=== PATIENT | male | born 1950 | race Two or more races ===

== ENCOUNTER 2022-04-10 20:49 | Inpatient (IN) | payer MEDICARE, OTHER ==
[~2022-04-10] VITALS: Ht 175.3 cm; Wt 71.2 kg
[2022-04-10] MEDS ORDERED: ASPI-1420 PO (23:19)
[2022-04-10] MEDS ORDERED: CARV25TA2 PO (23:19)
[2022-04-10] MEDS ORDERED: CHOL100062 PO (23:22)
[2022-04-10] MEDS ORDERED: CYAN-51 PO (23:24)
[2022-04-10] MEDS ORDERED: POLY17PO4 PO (23:25)
[2022-04-10] MEDS ORDERED: QUET25TA PO ×2 (23:26→23:27)
[2022-04-10] MEDS ORDERED: SIMV10TA2 PO (23:28)
[2022-04-10] MEDS ORDERED: ACETAMINOPHEN 325 MG TABLET PO PRN (23:30)
[2022-04-10] MEDS ORDERED: MAGNESIUM HYDROXIDE 30 ML UDC PO PRN (23:30)
[2022-04-10] MEDS ORDERED: BLOOD SUGAR DIAGNOSTIC 1 EACH STRIP IN ONE (23:30)
[2022-04-10] MEDS ORDERED: MAG HYDROX/AL HYDROX/SIMETH 30 ML UDC PO PRN (23:30)
[2022-04-10 23:31] VITALS: BP 138/80
--- NOTE | 2022-04-10 23:35 | NUR ---
GPS RN NOTE, PATIENT NEEDS A MEDICATION RECONCILIATION. PAGED [facility] WAITING FOR A RETURN CALL FROM DR JASMINE. WILL CONTINUE TO MONITOR THIS PATIENT WITH THE HELP OF STAFF.
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
[2022-04-11] MEDS: clonazePAM 0.5 MG TABLET PO PRN ×2 (05:28→09:45)
--- NOTE | 2022-04-11 05:28 | NUR ---
RN NOTES: ANXIETY PT. NOTED VERY ANXIOUS PACING IN THE HALLWAY SCREAMING ,YELLING ,PARNOID, NONREDIRECTABLE,KLONOPIN 0.5 MG PO GIVEN WILL CONTINUE TO MONITOR.
[2022-04-11 07:56] LABS: BASOPHILS % (AUTO) 0.8 % (0.0-2.0); EOSINOPHILS % (AUTO) 2.7 % (0.0-6.0); HEMATOCRIT 38 % (39-51); HEMOGLOBIN 12.5 g/dL (13.5-17.5); LYMPHOCYTES # (AUTO) 1.7 K/uL (0.8-4.8); MEAN CORPUSCULAR HGB CONC 33 g/dl (31.0-36.0); MEAN CORPUSCULAR VOLUME 89 fL (80-96); MONOCYTES # (AUTO) 0.6 K/uL (0.1-1.30); MONOCYTES % (AUTO) 11.4 % (2.0-12.0); NEUTROPHILS # (AUTO) 3.1 K/uL (1.8-8.9); NEUTROPHILS % (AUTO) 55.1 % (43.0-81.0); PLATELET COUNT (AUTO) 290 K/uL (150-450); WHITE BLOOD COUNT (AUTO) 5.7 K/uL (4.3-11.0)
[2022-04-11 08:00] VITALS: BP 132/71
[2022-04-11 08:43] LABS: CALCIUM, SERUM 8.9 mg/dL (8.5-10.1); CARBON DIOXIDE 28 mmol/L (21-32); CHLORIDE 108 mmol/L (98-107); CREATININE 1.6 mg/dL (0.6-1.3); GLUCOSE 62 mg/dL (74-106); POTASSIUM 3.3 mmol/L (3.5-5.1); SODIUM SERUM 144 mmol/L (136-145); UREA NITROGEN, BLOOD 33 mg/dL (7-18)
[2022-04-11 08:55] LABS: CHOLESTEROL 162 mg/dL (<200); HDL CHOLESTEROL 65 mg/dL (40-60); LDL 90 mg/dL (0-99); TRIGLYCERIDES 36 mg/dL (30-150)
[2022-04-11] MEDS: Z GUARD REMEDY 4 OZ OINT TP SCH (09:45)
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
--- NOTE | 2022-04-11 10:52 | NUR ---
BLACK Initial Discharge Note: Patient currently resides at [facility] located at [address] [place] [address]; ([phone]). Pt does not have any supportive contact at this time. BLACK contacted Marie from admissions ([phone]) who stated that pt is welcomed back. BLACK will work with the MD, family, and treatment team.
[2022-04-11] MEDS ORDERED: POTASSIUM CHLORIDE 20 MEQ TAB.PRT.SR PO SCH ×2 (11:00→13:00)
--- NOTE | 2022-04-11 11:01 | NUR ---
Treatment Plan: Pt refused to sign treatment plan and appeared very confused.
[2022-04-11] MEDS: CARVEDILOL 12.5 MG TABLET PO SCH ×2 (12:45→17:25)
[2022-04-11] MEDS: ASPIRIN EC 81 MG TABLET.DR PO SCH (12:46)
[2022-04-11 16:00] VITALS: BP 136/74
[2022-04-11] MEDS: DIVALPROEX SODIUM 125 MG CAP.SPRINK PO SCH ×2 (16:01→21:35)
--- NOTE | 2022-04-11 19:30 | NUR ---
GPS RN NOTE, RECEIVED PATIENT AWAKE AND IN BED, NO S/S OR COMPLAINTS OF PAIN AT THIS TIME. PATIENT IS DISPLAYING NO S/S OF APPARENT DISTRESS AT THIS TIME. PATIENT BREATHING IS UNLABORED WITH EQUAL RISE AND FALL OF THE CHEST. PATIENT IS ALERT AND ORIENTED X 1 ON ROOM AIR WITH A SPO2 98%. PATIENT IS MONTSERRATIAN SPEAKING WITH SOME ROMANIAN. PATIENT IS COMPLIANT WITH MEDICATIONS, CONFUSED, ANXIOUS, PARANOID, UNPREDICTABLE, AND UNCOOPERATIVE. PATIENT DENIES SUICIDAL AND HOMICIDAL IDEATIONS AT THIS TIME. PATIENT ASSISTED WITH TURNING AND REPOSITIONING Q2HR AND PRN FOR COMFORT AND CIRCULATION. PATIENT HAS NO NEEDS AT THIS TIME. PATIENT EDUCATED ON THE USE OF THE CALL CRUZ. PATIENT BED SIDE RAILS UP X 2 FOR SAFETY. PATIENT BED IS LOCKED AND LOW. WILL CONTINUE TO MONITOR THIS PATIENT Q15 MINUTES WITH THE HELP OF STAFF TO MAINTAIN SAFETY.
[2022-04-11 20:25] VITALS: BP 135/76
[2022-04-11] MEDS: OLANZAPINE ZYDIS 5 MG TAB.RAPDIS PO SCH (21:35)
[2022-04-11] MEDS: SIMVASTATIN 10 MG TABLET PO SCH (21:35)
[2022-04-11] MEDS: TEMAZEPAM 7.5 MG CAPSULE PO PRN (21:37)
--- NOTE | 2022-04-11 21:37 | NUR ---
GPS RN NOTE, PATIENT HAS A COMPLAINT OF NOT BEING ABLE TO SLEEP AND IS REQUESTING RESTORIL AT THIS TIME. PATIENT VITAL SIGNS ARE STABLE. GAVE RESTORIL 7.5MG PO HS PRN ORDERED. WILL REASSESS FOR INSOMNIA AND I WILL CONTINUE TO MONITOR THIS PATIENT WITH THE HELP OF STAFF.
[2022-04-12] MEDS: clonazePAM 0.5 MG TABLET PO PRN ×2 (00:12→04:20)
--- NOTE | 2022-04-12 00:12 | NUR ---
GPS RN NOTE, PATIENT HAS A COMPLAINT OF FEELING ANXIOUS AND IS REQUESTING KLONOPIN AT THIS TIME. PATIENT VITAL SIGNS ARE STABLE. GAVE KLONOPIN 0.5MG PO Q4HR PRN ORDERED. WILL REASSESS FOR ANXIETY AND I WILL CONTINUE TO MONITOR THIS PATIENT WITH THE HELP OF STAFF.
[2022-04-12 08:00] VITALS: BP 116/73
[2022-04-12] MEDS: Z GUARD REMEDY 4 OZ OINT TP SCH (08:45)
[2022-04-12] MEDS: OLANZAPINE ZYDIS 5 MG TAB.RAPDIS PO SCH ×2 (08:45→21:45)
[2022-04-12] MEDS: DIVALPROEX SODIUM 125 MG CAP.SPRINK PO SCH ×2 (08:45→21:44)
[2022-04-12] MEDS: CYANOCOBALAMIN 500 MCG TABLET PO SCH (08:45)
[2022-04-12] MEDS: ASPIRIN EC 81 MG TABLET.DR PO SCH (08:45)
[2022-04-12] MEDS: POLYETHYLENE GLYCOL 3350 17 GM POWD.PACK PO SCH (08:46)
[2022-04-12] MEDS: CARVEDILOL 12.5 MG TABLET PO SCH ×2 (08:46→17:26)
--- NOTE | 2022-04-12 14:01 | NUR ---
GPS/RN PT REFUSED IN AND OUT INSERTION , REFUSED TO GO THE RESTROOM. REQUESTED TO BE LEFT ALONE. COMMUNICATED VIA LUCINA DAVIS. CHARGE NURSE DAT RAY.
--- NOTE | 2022-04-12 15:40 | NUR ---
GPS/RN STRAIGHT CATH. DONE WITH 1000ML OUTPUT. URINE SAMPLES COLLECTED AND SENT TO THE LAB.
[2022-04-12 17:54] VITALS: BP 133/83
[2022-04-12 18:31] LABS: BILIRUBIN,URINE NEGATIVE (NEGATIVE); COLOR,URINE YELLOW (YELLOW); LEUKOCYTE ESTERASE ,URINE NEGATIVE (NEGATIVE); NITRITE, URINE NEGATIVE (NEGATIVE); PH,URINE 5.5 (5.0-8.0); PROTEIN,URINE NEGATIVE (NEGATIVE); UGLUCOSE NEGATIVE (NEGATIVE); UROBILINOGEN,URINE 0.2 EU/dL (0.2)
[2022-04-12 18:49] LABS: CREATININE, URINE 72.4 MG/DL (30.0-125.0)
[2022-04-12 20:00] VITALS: BP 149/84
--- NOTE | 2022-04-12 20:07 | NUR ---
GPS TEST PREPARER NOTE : PT RECEIVED SITTING IN NEREYDA- CHAIR IN THE HALLWAY, APPEARS RESTING COMFORTABLY AT THIS TIME, BREATHING EVEN AND UNLABORED, WITH NO S/SX OF RESP DISTRESS NOTED. ALERT ORIENTED X 1, DENIES PAIN OR DISCOMFORT AT THIS TIME. PT IS IRISH SPEAKING WITH LITTLE SOUTH SUDANESE. PATIENT IS COMPLIANT WITH MEDICATIONS, CONFUSED, ANXIOUS, PARANOID, UNPREDICTABLE, AND UNCOOPERATIVE. PATIENT DENIES SUICIDAL AND HOMICIDAL IDEATIONS AT THIS TIME. PATIENT ASSISTED WITH TURNING AND REPOSITIONING Q2HR AND PRN FOR COMFORT AND CIRCULATION. PATIENT HAS NO NEEDS AT THIS TIME. SAFETY AND COMFORT MEASURES OBSERVED. WILL CONTINUE TO MONITOR THIS PATIENT Q15 MINUTES WITH THE HELP OF STAFF TO MAINTAIN SAFETY.
[2022-04-12] MEDS: SIMVASTATIN 10 MG TABLET PO SCH (21:44)
--- NOTE | 2022-04-12 22:40 | NUR ---
Bladder scan done as per order- scan obtained >990 ml , pt was taken to the restroom but unable to void, diaper also noted clean and dry, software publisher Nurse Mauricio novoa , will contact occupational therapy technician for further order. Pt denies pain or discomfort at this time. Will cont to monitor.
[2022-04-12] MEDS: TEMAZEPAM 7.5 MG CAPSULE PO PRN (22:54)
--- NOTE | 2022-04-12 22:54 | NUR ---
PT REQUESTED FOR PRN RESTORIL - FOR INSOMNIA, MEDICATION GIVEN ORDERED, WILL CONT TO MONITOR AND ASSESS EFFECTIVENESS IN AN HOUR, SAFETY PRECAUTIONS OBSERVED.
--- NOTE | 2022-04-12 23:00 | NUR ---
GPS RN NOTE, PATIENT RETAINING URIN, BLADDER SCANNER COMPLETED WITH 999ML OF URIN RETAINED. PAGED [facility] AND INFORMED CHENTE RHODES NP OF MY FINDINGS. CHENTE RHODES NP ORDERED TO INSERT WALLS CATHETER, AND ORDERED FLOMAX 0.4MG PO Q HS FIRST DOSE 2330. ALL ORDERS NOTED CARRIED OUT. WILL CONTINUE TO MONITOR THIS PATIENT WITH THE HELP OF STAFF.
--- NOTE | 2022-04-12 23:13 | NUR ---
GPS AUTO PARTS PROFESSIONAL NOTE : CORSETIER NURSE ELLEN RECEIVED ORDER FROM ALEXANDRE RHODES TO INSERT WALLS CATHETER TO PT FOR URINARY RETENTION , ORDER CARRIED OUT- INSERTED 16 FR / 10 ML BAL INDWELLING CATHETER TO PT- TOLERATED WELL BY PT- CLEAR YELLOW URINE DRAINING WELL, WITH NO S/SX OF BLEEDING NOTED, NO SIGNS OF DIFFICULTY NOTED DURING INSERTION- STERILE TECHNIQUE OBSERVED DURING PROCEDURE, PT COOPERATIVE DURING PROCEDURE. URINE OUTPUT OF 400 ML NOTED RIGHT AFTER INSERTION, CLAMPED WALLS, AND WILL UN CLAMP AFTER 30 MINS- WILL RE-ASSESS AND CONT TO MONITOR PT.
--- NOTE | 2022-04-12 23:15 | NUR ---
GPS RN NOTE, PATIENT HAS A WALLS CATHETER AND NEEDS A SITTER PER GPS POLICY. INFORMED CLOTH BOLT BANDER DHARMESH CORBETT RN AND PAGED DR LEON. INFORMED DR LEON OF MY FINDINGS. DR DEGROOT GAVE ORDER FOR ONE TO ONE SITTER WHILE WALLS CATHETER INSERTED TO START 04/13/22 @ 0730. ALL ORDERS NOTED AND CARRIED OUT. WILL CONTINUE TO MONITOR THIS PATIENT WITH THE HELP OF STAFF. Addendum: 04/12/22 at 2335 by ELLEN ANN RN GPS RN NOTE, PATIENT HAS A WALLS CATHETER AND NEEDS A SITTER PER GPS POLICY. INFORMED CLOTH BOLT BANDER DHARMESH CORBETT RN AND PAGED DR LEON. INFORMED DR LEON OF MY FINDINGS. DR LEON GAVE ORDER FOR ONE TO ONE SITTER WHILE WALLS CATHETER IS INSERTED AND TO START IT ON 04/13/22 @ 0730. ALL ORDERS NOTED AND CARRIED OUT. WILL CONTINUE TO MONITOR THIS PATIENT WITH THE HELP OF STAFF.
[2022-04-12] MEDS: TAMSULOSIN 0.4 MG CAP.SR.24H PO SCH (23:38)
--- NOTE | 2022-04-12 23:41 | NUR ---
GPS AIRCRAFT POWER PLANT ASSEMBLER NOTE- NEW MEDICATION ORDER FLOMAX 0.4 CAP FOR BLADDER CONTROL GIVEN TO PT ORDERED, MEDICATION GIVEN WITH APPLE SAUCE. PT COMPLIANT WITH HIS MEDICATION AND COOPERATIVE. CONT TO MONITOR PT FOR SAFETY AND BEHAVIOR.
--- NOTE | 2022-04-12 23:59 | NUR ---
GPS DECORATIVE ENGRAVER NOTE : RE-ASSESSMENT OF RESTORIL- PT STILL AWAKE, BUT APPEARS SLEEPY, CALM AND COOPERATIVE AT THIS TIME. DENIES PAIN OR DISCOMFORT. REPOSITIONED AND KEPT CLEAN AND COMFORTABLE. UN-CLAMPED WALLS CATH, NOW ON CONT - WALLS CATHETER, WALLS DRAINING CLEAR YELLOW URINE , NO SEDIMENTS NO BLOOD NOTED. CONT TO MONITOR AND ANTICIPATE NEEDS.
--- NOTE | 2022-04-13 01:00 | NUR ---
GPS COAT JOINER LOCKSTITCH NOTE: PT AWAKE, C/O HUNGRY, SNACK - SANDWICH GIVEN AND APPLE JUICE GIVEN TO PT, PT APPRECIATIVE. REMAINS CALM AT THIS TIME. CONT TO MONITOR AND ANTICIPATE NEEDS.
[2022-04-13] MEDS: clonazePAM 0.5 MG TABLET PO PRN ×4 (01:20→19:53)
--- NOTE | 2022-04-13 01:21 | NUR ---
GPS EXPELLER OPERATOR NOTE: PT WITH EPISODE ON ANXIETY , PRN KLONOPIN 0.5 MG / TAB GIVEN ORDERED. WILL CONT TO CLOSELY MONITOR PT.
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
--- NOTE | 2022-04-13 03:19 | NUR ---
GPS CHIEF STATION ENGINEER NOTE : PT REMAINS WIDE AWAKE, TRASHING ,ANXIOUS AND ATTEMPTING TO PULL OUT WALLS, BILATERAL HAND MITTENS PER ORDER, CIRCULATION CHECK Q 15 MINS, STAFF CLOSELY MONITORING PT.
--- NOTE | 2022-04-13 05:21 | NUR ---
GPS INDUSTRIAL RELATIONS COUNSELOR NOTE : PT WAS AWAKE MOST OF THE NIGHT, ANXIOUS, UNPREDICTABLE, PARANOID, EASILY AGITATED, DISORGANIZED, NEEDS FREQUENT REDIRECTIONS, AND NEEDS 1:1 MONITORING FOR SAFETY - PT HAS WALLS CATHETER FOR URINARY INCONTINENCE. COMPLIANT WITH MEDICATIONS , TOLERATED MEDS NO A/R NOTED. URINE OUTPUT OBTAINED : 1,750 ML OF CLEAR YELLOW URINE, NO SEDIMENTS NO BLOOD NOTED. REPOSITIONED PT Q 2HRS, AND KEPT PT CLEAN AND DRY. Q 15 MIN CHECK DONE, AND Q 15 MIN CIRCULATION CHECK AND RELEASE OF SOFT BILATERAL HAND MITTENS PER ORDER. WILL CONT TO MONITOR AND ANTICIPATE NEEDS. SAFETY MEASURES OBSERVED.
[2022-04-13 07:09] LABS: BASOPHILS % (AUTO) 0.8 % (0.0-2.0); EOSINOPHILS % (AUTO) 5.1 % (0.0-6.0); HEMATOCRIT 39 % (39-51); HEMOGLOBIN 12.6 g/dL (13.5-17.5); LYMPHOCYTES # (AUTO) 1.6 K/uL (0.8-4.8); LYMPHOCYTES % (AUTO) 31.1 % (20.0-44.0); MEAN CORPUSCULAR HGB CONC 32 g/dl (31.0-36.0); MEAN CORPUSCULAR VOLUME 90 fL (80-96); MONOCYTES # (AUTO) 0.5 K/uL (0.1-1.30); NEUTROPHILS # (AUTO) 2.7 K/uL (1.8-8.9); PLATELET COUNT (AUTO) 283 K/uL (150-450); RED BLOOD CELL COUNT(AUTO) 4.36 MIL/uL (4.5-6.0)
[2022-04-13 07:28] LABS: ALBUMIN 3.1 g/dL (3.4-5.0); BILIRUBIN,TOTAL 0.4 mg/dL (0.2-1.0); CALCIUM, SERUM 9.2 mg/dL (8.5-10.1); CREATININE 1.3 mg/dL (0.6-1.3); POTASSIUM 4.2 mmol/L (3.5-5.1); TOTAL PROTEIN, SERUM 6.8 g/dL (6.4-8.2)
[2022-04-13 08:00] VITALS: BP 143/97
[2022-04-13] MEDS: OLANZAPINE 2.5 MG TABLET PO SCH (08:05)
[2022-04-13] MEDS: CYANOCOBALAMIN 500 MCG TABLET PO SCH (08:05)
[2022-04-13] MEDS: CARVEDILOL 12.5 MG TABLET PO SCH ×2 (08:05→17:00)
[2022-04-13] MEDS: DIVALPROEX SODIUM 125 MG CAP.SPRINK PO SCH ×2 (08:05→21:52)
[2022-04-13] MEDS: Z GUARD REMEDY 4 OZ OINT TP SCH (08:06)
[2022-04-13] MEDS: ASPIRIN EC 81 MG TABLET.DR PO SCH (08:06)
[2022-04-13] MEDS: POLYETHYLENE GLYCOL 3350 17 GM POWD.PACK PO SCH (08:06)
--- NOTE | 2022-04-13 11:05 | NUR ---
NURSE NOTE: PT AGITATED AT THIS TIME. TRYING TO TAKE WALLS OUT. CLONAZEPAM ADMINISTERED ORDERED. PT ADIS WELL. WILL CONT TO MONITOR.
--- NOTE | 2022-04-13 12:05 | NUR ---
NURSE NOTE: PT A LITTLE CALMER THAN BEFORE CLONOPIN, BUT STILL A LITTLE AGITATED. NOT PICKING AT WALLS CATH ANYMORE. WILL CONT TO MONITOR.
[2022-04-13] MEDS: OLANZAPINE ZYDIS 5 MG TAB.RAPDIS PO SCH ×2 (13:01→21:52)
--- NOTE | 2022-04-13 15:25 | NUR ---
NURSE NOTE: PT AGITATED. TRYING TO TAKE WALLS OUT. CLONAZEPAM PO ADMIN ORDERED, PT ADIS WELL.
[2022-04-13 16:00] VITALS: BP 108/70
--- NOTE | 2022-04-13 16:25 | NUR ---
NURSE NOTE: PT CALMER AT THIS TIME. NOT PICKING AT WALLS ANYMORE. WILL CONT TO MONITOR.
--- NOTE | 2022-04-13 20:04 | NUR ---
Pt agitated and trying to pull on kendrick cath. Least restrictive measures ineffective. Klonopin 0.5 mg po prn given as ordered. 1:1 sitter by bed side at all times. Will continue to monitor.
--- NOTE | 2022-04-13 21:15 | NUR ---
Post 1 hr Klonopin effective. Pt calm and asleep in bed easy to arouse. 1:1 sitter by bedside at all times for safety. Rivero patent and intact with yellow urine and draining well. No s/s of any kind of distress. Frequent visual check done for safety. Will continue to monitor.
[2022-04-13] MEDS: SIMVASTATIN 10 MG TABLET PO SCH (21:52)
[2022-04-13] MEDS: TAMSULOSIN 0.4 MG CAP.SR.24H PO SCH (21:53)
[2022-04-14 08:00] VITALS: BP 136/78
[2022-04-14] MEDS: OLANZAPINE 2.5 MG TABLET PO SCH (09:35)
[2022-04-14] MEDS: ASPIRIN EC 81 MG TABLET.DR PO SCH (09:35)
[2022-04-14] MEDS: CARVEDILOL 12.5 MG TABLET PO SCH ×2 (09:36→17:30)
[2022-04-14] MEDS: CYANOCOBALAMIN 500 MCG TABLET PO SCH (09:36)
[2022-04-14] MEDS: POLYETHYLENE GLYCOL 3350 17 GM POWD.PACK PO SCH (09:37)
[2022-04-14] MEDS: DIVALPROEX SODIUM 125 MG CAP.SPRINK PO SCH ×2 (09:37→21:09)
[2022-04-14] MEDS: Z GUARD REMEDY 4 OZ OINT TP SCH (09:37)
[2022-04-14] MEDS: OLANZAPINE ZYDIS 5 MG TAB.RAPDIS PO SCH ×2 (13:25→21:10)
--- NOTE | 2022-04-14 13:55 | NUR ---
BLACK Family: SW received a call from antoninabrianna Cary ([phone]) and discussed treatment and discharge plan. [facility] She stated that he was living with them and they were trying to take care of pt but were unable too. She stated that she is unsure if she would want pt to go back to [place] or with family or a new facility. BLACK will follow up with family when pt is a bit stable.
[2022-04-14 16:00] VITALS: BP 141/73
[2022-04-14 19:40] VITALS: BP 114/60
[2022-04-14] MEDS: TAMSULOSIN 0.4 MG CAP.SR.24H PO SCH (21:09)
[2022-04-14] MEDS: SIMVASTATIN 10 MG TABLET PO SCH (21:10)
[2022-04-14] MEDS: TEMAZEPAM 7.5 MG CAPSULE PO PRN (23:34)
[2022-04-15] MEDS: TEMAZEPAM 7.5 MG CAPSULE PO PRN ×2 (00:46→23:21)
[2022-04-15 08:00] VITALS: BP 145/84
--- NOTE | 2022-04-15 08:00 | NUR ---
VIPIN PSYCHE RN NOTES: RECEIVED PT IN UP IN CHAIR, A/O X 1 MONGOLIAN SPEAKING. NO SOB OR CARDIAC DISTRESS NOTED, DENIES PAIN AT THIS TIME, NO EPISODES OF BEHAVIORAL CHANGES. RESIDENT NOTED WITH WALLS CATHETER DRAINING CLEAR YELLOW COLORED URINE VIA GRAVITY. PT'S MORNING MEDS CRUSHED AND MIXED WITH VANILLA PUDDING, POWDERED MEDS (MIRALAX) MIXED WITH ORANGE JUICE AND PT TOLERATED WELL. WILL MONITOR ACCORDINGLY. SAFETY MEASURES MAINTAINED:BED LOCKED AND IN LOWEST POSITION, SIDE RAILS UP X 2. CALL LIGHT IN EASY REACH.
--- NOTE | 2022-04-15 08:30 | NUR ---
RN NOTES ADDENDUM: PT NOTED WITH BILATERAL MITTENS PT PULLING OUT HIS WALLS CATH, PER MIXER OPERATOR HOT METAL ENDORSEMENT.
[2022-04-15] MEDS: DIVALPROEX SODIUM 125 MG CAP.SPRINK PO SCH ×2 (08:36→21:15)
[2022-04-15] MEDS: CARVEDILOL 12.5 MG TABLET PO SCH ×2 (08:36→16:31)
[2022-04-15] MEDS: POLYETHYLENE GLYCOL 3350 17 GM POWD.PACK PO SCH (08:36)
[2022-04-15] MEDS: ASPIRIN EC 81 MG TABLET.DR PO SCH (08:37)
[2022-04-15] MEDS: CYANOCOBALAMIN 500 MCG TABLET PO SCH (08:37)
[2022-04-15] MEDS: OLANZAPINE 2.5 MG TABLET PO SCH (08:39)
[2022-04-15] MEDS: Z GUARD REMEDY 4 OZ OINT TP SCH (09:00)
[2022-04-15] MEDS: OLANZAPINE ZYDIS 5 MG TAB.RAPDIS PO SCH ×2 (12:38→21:15)
[2022-04-15 16:00] VITALS: BP 116/62
[2022-04-15 20:10] VITALS: BP 110/71
[2022-04-15] MEDS: TAMSULOSIN 0.4 MG CAP.SR.24H PO SCH (21:15)
[2022-04-15] MEDS: SIMVASTATIN 10 MG TABLET PO SCH (21:15)
[2022-04-16] MEDS: TEMAZEPAM 7.5 MG CAPSULE PO PRN (00:34)
--- NOTE | 2022-04-16 05:59 | NUR ---
RN note: Patient was given Restoril 7. 5 mg PO and noted still awake with difficulty falling asleep.Repeat dose of Restoril 7.5mg PO as ordered.Patient slept for 1 hour.
[2022-04-16 08:00] VITALS: BP 149/70
[2022-04-16] MEDS: ASPIRIN EC 81 MG TABLET.DR PO SCH (08:57)
[2022-04-16] MEDS: DIVALPROEX SODIUM 125 MG CAP.SPRINK PO SCH ×2 (08:57→21:28)
[2022-04-16] MEDS: CYANOCOBALAMIN 500 MCG TABLET PO SCH (08:58)
[2022-04-16] MEDS: CARVEDILOL 12.5 MG TABLET PO SCH ×2 (08:58→16:59)
[2022-04-16] MEDS: OLANZAPINE 2.5 MG TABLET PO SCH (08:58)
[2022-04-16] MEDS: Z GUARD REMEDY 4 OZ OINT TP SCH (08:58)
[2022-04-16] MEDS: POLYETHYLENE GLYCOL 3350 17 GM POWD.PACK PO SCH (09:00)
--- NOTE | 2022-04-16 09:48 | NUR ---
Court Notification: SW contacted pt's marky Townsend ([phone]) to notify of pt's 14 day hold. Left a voicemail.
--- NOTE | 2022-04-16 09:49 | NUR ---
Court Hearing: Patient's court hearing for 4360 was today and it was upheld for GD.
[2022-04-16] MEDS: OLANZAPINE ZYDIS 5 MG TAB.RAPDIS PO SCH ×2 (12:41→21:27)
[2022-04-16] MEDS: clonazePAM 0.5 MG TABLET PO PRN (12:45)
--- NOTE | 2022-04-16 12:45 | NUR ---
NURSE NOTE: PT AGITATED AT THIS TIME. ATIVAN PO ADMINISTERED ORDERED. PT ADIS WELL. WILL CONT TO MONITOR.
--- NOTE | 2022-04-16 13:45 | NUR ---
NURSE NOTE: PT CALM AT THIS TIME. ATIVAN EFFECTIVE. WILL CONT TO MONITOR.
--- NOTE | 2022-04-16 15:11 | NUR ---
SNF Referral: BLACK sent clinicals to [facility] ([phone]) for placement. BLACK sent to Max Streeter. SW sent H & P, progress notes, and medication list.
[2022-04-16 16:00] VITALS: BP 139/80
[2022-04-16 20:09] VITALS: BP 104/54
[2022-04-16] MEDS: SIMVASTATIN 10 MG TABLET PO SCH (21:26)
[2022-04-16] MEDS: TAMSULOSIN 0.4 MG CAP.SR.24H PO SCH (22:00)
[2022-04-17 08:00] VITALS: BP 152/86
[2022-04-17] MEDS: OLANZAPINE 2.5 MG TABLET PO SCH (08:31)
[2022-04-17] MEDS: ASPIRIN EC 81 MG TABLET.DR PO SCH (08:31)
[2022-04-17] MEDS: DIVALPROEX SODIUM 125 MG CAP.SPRINK PO SCH ×2 (08:31→21:47)
[2022-04-17] MEDS: POLYETHYLENE GLYCOL 3350 17 GM POWD.PACK PO SCH (08:34)
[2022-04-17] MEDS: CYANOCOBALAMIN 500 MCG TABLET PO SCH (08:34)
[2022-04-17] MEDS: CARVEDILOL 12.5 MG TABLET PO SCH ×2 (08:35→17:00)
[2022-04-17] MEDS: Z GUARD REMEDY 4 OZ OINT TP SCH (09:53)
--- NOTE | 2022-04-17 11:32 | NUR ---
SNF Contact SW received a call from [facility] ([phone]) Max Streeter who stated that pt is accepted.
--- NOTE | 2022-04-17 11:39 | NUR ---
SW Family: SW spoke with marky Townsend ([phone]) and stated pt is accepted at [facility] and she was agreeable of this and would want [facility].
[2022-04-17] MEDS: OLANZAPINE ZYDIS 5 MG TAB.RAPDIS PO SCH ×2 (12:40→21:47)
[2022-04-17 14:36] LABS: BASOPHILS # (AUTO) 0.1 K/uL (0.0-0.2); BASOPHILS % (AUTO) 0.9 % (0.0-2.0); HEMATOCRIT 40 % (39-51); HEMOGLOBIN 12.8 g/dL (13.5-17.5); LYMPHOCYTES # (AUTO) 1.5 K/uL (0.8-4.8); LYMPHOCYTES % (AUTO) 25.2 % (20.0-44.0); MEAN CORPUSCULAR HGB CONC 32 g/dl (31.0-36.0); MEAN CORPUSCULAR VOLUME 89 fL (80-96); MONOCYTES # (AUTO) 0.6 K/uL (0.1-1.30); MONOCYTES % (AUTO) 10.4 % (2.0-12.0); NEUTROPHILS # (AUTO) 3.5 K/uL (1.8-8.9); NEUTROPHILS % (AUTO) 58.5 % (43.0-81.0); PLATELET COUNT (AUTO) 251 K/uL (150-450); RED BLOOD CELL COUNT(AUTO) 4.46 MIL/uL (4.5-6.0)
[2022-04-17 15:37] LABS: ALBUMIN 2.8 g/dL (3.4-5.0); BILIRUBIN,TOTAL 0.4 mg/dL (0.2-1.0); CALCIUM, SERUM 8.8 mg/dL (8.5-10.1); CREATININE 1.2 mg/dL (0.6-1.3); POTASSIUM 4.2 mmol/L (3.5-5.1); TOTAL PROTEIN, SERUM 6.7 g/dL (6.4-8.2)
[2022-04-17 16:00] VITALS: BP 102/61
--- NOTE | 2022-04-17 18:11 | NUR ---
RN-NOTES PATIENT IN THE DAY ROOM,UP IN THE NEREYDA CHAIR,A/O X1 GUARDED,NO ACUTE DISTRESS NOTED. PATIENT ON WALLS CATHETER, INTACT INFUSING WELL WITH YELLOW URINE,OUT PUT OF 1100ML THIS SHIFT,NO SEDIMENTATION NOTED.PATIENT ON BILATERAL HAND MITTENS DUE TO EPISODE OF PULLING HIS WALLS CATH.COMPLIANT WITH MEDICATIONS. PATIENT WAS WALK BY THE STAFF IN THE HALLWAY.NEEDS MAXIMUM ASSIST WITH ADL'S AND FEEDING. ALL NEEDS ATTENDED AND ANTICIPATED. WILL CONT. MONITORING FOR SAFETY AND BEHAVIOR.WILL ENDORSE TO INCOMING NURSE FOR THE CONTINUITY OF CARE.
[2022-04-17 20:47] VITALS: BP 104/58
[2022-04-17] MEDS: SIMVASTATIN 10 MG TABLET PO SCH (21:47)
[2022-04-17] MEDS: TAMSULOSIN 0.4 MG CAP.SR.24H PO SCH (21:47)
[2022-04-18] MEDS: TEMAZEPAM 7.5 MG CAPSULE PO PRN (00:28)
--- NOTE | 2022-04-18 00:33 | NUR ---
gps finished goods stock clerk notes pt remain awake and confused, restoril given to help the patient to sleep as ordered.
--- NOTE | 2022-04-18 06:31 | NUR ---
GPS CLOSING NOTES' PT REMAINS SLEEPING IN HIS ROOM AFTER RESTORIL GIVEN LAST NIGHT. , NO SIGNS OF ANY DISTRESS NOTED. KEPT HIM WARM AND COMFORTABLE AT ALL TIMES. ALL DUE MEDS GIVEN . STILL ON SOFT WRIST RESTRAINT TO PREVENT PT PULLING HIS WALLS CATH. WILL ENDORSE TO AM NURSE FOR CONTINUITY OF CARE.
[2022-04-18 08:00] VITALS: BP 112/65
[2022-04-18] MEDS: CYANOCOBALAMIN 500 MCG TABLET PO SCH (10:04)
[2022-04-18] MEDS: DIVALPROEX SODIUM 125 MG CAP.SPRINK PO SCH ×2 (10:04→21:21)
[2022-04-18] MEDS: ASPIRIN EC 81 MG TABLET.DR PO SCH (10:04)
[2022-04-18] MEDS: CARVEDILOL 12.5 MG TABLET PO SCH ×2 (10:05→17:10)
[2022-04-18] MEDS: OLANZAPINE 2.5 MG TABLET PO SCH (10:07)
[2022-04-18] MEDS: POLYETHYLENE GLYCOL 3350 17 GM POWD.PACK PO SCH (10:07)
[2022-04-18] MEDS: Z GUARD REMEDY 4 OZ OINT TP SCH (10:08)
[2022-04-18] MEDS: OLANZAPINE ZYDIS 5 MG TAB.RAPDIS PO SCH ×2 (13:42→21:22)
[2022-04-18 16:00] VITALS: BP 126/67
--- NOTE | 2022-04-18 19:00 | NUR ---
RN-NOTES PATIENT IN THE DAY ROOM,UP IN THE NEREYDA CHAIR,A/O X1 GUARDED,NO ACUTE DISTRESS NOTED. PATIENT ON WALLS CATHETER, INTACT INFUSING WELL WITH YELLOW URINE,OUT PUT OF 1200ML THIS SHIFT,NO SEDIMENTATION NOTED.PATIENT ON BILATERAL HAND MITTENS DUE TO EPISODE OF PULLING HIS WALLS CATH.COMPLIANT WITH MEDICATIONS. GOOD ZA CARE RENDERED.NEEDS MAXIMUM ASSIST WITH ADL'S AND FEEDING. ALL NEEDS ATTENDED AND ANTICIPATED. WILL CONT. MONITORING FOR SAFETY AND BEHAVIOR.WILL ENDORSE TO INCOMING NURSE FOR THE CONTINUITY OF CARE.
[2022-04-18 20:00] VITALS: BP 140/87
--- NOTE | 2022-04-18 20:34 | NUR ---
PATIENT IN HALLWAY SITTING IN NEREYDA CHAIR. NO BEHAVIORAL ISSUE AT THIS TIME. SAFETY MEASURES IMPLEMENTED. WILL CONTINUE TO MONITOR FOR SAFETY AND BEHAVIOR.
[2022-04-18] MEDS: SIMVASTATIN 10 MG TABLET PO SCH (21:22)
[2022-04-18] MEDS: TAMSULOSIN 0.4 MG CAP.SR.24H PO SCH (21:22)
[2022-04-19 08:00] VITALS: BP 128/64
[2022-04-19] MEDS: clonazePAM 0.5 MG TABLET PO PRN ×2 (08:06→14:32)
[2022-04-19] MEDS: DIVALPROEX SODIUM 125 MG CAP.SPRINK PO SCH ×3 (08:07→16:14)
[2022-04-19] MEDS: POLYETHYLENE GLYCOL 3350 17 GM POWD.PACK PO SCH (08:07)
[2022-04-19] MEDS: OLANZAPINE 2.5 MG TABLET PO SCH (08:07)
[2022-04-19] MEDS: ASPIRIN EC 81 MG TABLET.DR PO SCH (08:07)
[2022-04-19] MEDS: CYANOCOBALAMIN 500 MCG TABLET PO SCH (08:07)
[2022-04-19] MEDS: CARVEDILOL 12.5 MG TABLET PO SCH ×2 (08:08→16:15)
--- NOTE | 2022-04-19 08:10 | NUR ---
RN-NOTES NOTED PATIENT WITH AGITATION,GRABBING HIS WALLS CATHETER WITH HIS LEFT HAND WITH MITTENS ON IT ,REDIRECTED AND KLONOPIN 0.5MG P.O GIVEN PRN ORDER BUT PATIENT SPITS MOST OF HIS MEDICATIONS.WILL CONT. MONITORING FOR SAFETY AND BEHAVIOR.
[2022-04-19] MEDS: Z GUARD REMEDY 4 OZ OINT TP SCH (09:04)
[2022-04-19] MEDS: OLANZAPINE ZYDIS 5 MG TAB.RAPDIS PO SCH ×2 (12:11→20:51)
--- NOTE | 2022-04-19 14:33 | NUR ---
RN-NOTES NOTED PATIENT WITH AGITATION, BITTING HIS HAND MITTENS,REDIRECTED AND KLONOPIN 0.5MG P.O GIVEN PRN ORDER .WILL CONT. MONITORING FOR SAFETY AND BEHAVIOR.
--- NOTE | 2022-04-19 15:35 | NUR ---
RN-NOTES PATIENT IN THE DAY ROOM UP IN THE NEREYDA CHAIR AWAKE,A/OX1 ,QUIET,CALM NO ACUTE DISTRESS NOTED.
[2022-04-19 16:08] VITALS: BP_SYST 138; BP_SYST 99; BP_DIAS 64; BP_DIAS 69
--- NOTE | 2022-04-19 18:51 | NUR ---
RN-NOTES PATIENT IN THE DAY ROOM,UP IN THE NEREYDA CHAIR,A/O X1 GUARDED,NO ACUTE DISTRESS NOTED. NOTED WITH EPISODE OF AGITATION GRABBING HIS WALLS CATHETER THIS SHIFT. NEEDS REDIRECTIONS AND REORIENTATIONS.PATIENT ON WALLS CATHETER, INTACT INFUSING WELL WITH YELLOW URINE,OUT PUT OF 1100 ML THIS SHIFT,NO SEDIMENTATION NOTED.PATIENT ON BILATERAL HAND MITTENS DUE TO EPISODE OF PULLING HIS WALLS CATH.COMPLIANT WITH MEDICATIONS. GOOD ZA CARE RENDERED.NEEDS MAXIMUM ASSIST WITH ADL'S AND FEEDING. ALL NEEDS ATTENDED AND ANTICIPATED. WILL CONT. MONITORING FOR SAFETY AND BEHAVIOR.WILL ENDORSE TO INCOMING NURSE FOR THE CONTINUITY OF CARE.
[2022-04-19 20:00] VITALS: BP 113/45
[2022-04-19] MEDS: TEMAZEPAM 7.5 MG CAPSULE PO PRN (20:52)
[2022-04-19] MEDS: TAMSULOSIN 0.4 MG CAP.SR.24H PO SCH (21:37)
[2022-04-19] MEDS: SIMVASTATIN 10 MG TABLET PO SCH (21:39)
[2022-04-20 08:00] VITALS: BP 128/77
[2022-04-20] MEDS: POLYETHYLENE GLYCOL 3350 17 GM POWD.PACK PO SCH (08:10)
[2022-04-20] MEDS: CYANOCOBALAMIN 500 MCG TABLET PO SCH (08:10)
[2022-04-20] MEDS: ASPIRIN EC 81 MG TABLET.DR PO SCH (08:10)
[2022-04-20] MEDS: DIVALPROEX SODIUM 125 MG CAP.SPRINK PO SCH ×3 (08:10→16:14)
[2022-04-20] MEDS: OLANZAPINE 2.5 MG TABLET PO SCH (08:10)
[2022-04-20] MEDS: CARVEDILOL 12.5 MG TABLET PO SCH ×2 (08:11→16:15)
[2022-04-20] MEDS: Z GUARD REMEDY 4 OZ OINT TP SCH (08:11)
[2022-04-20] MEDS: OLANZAPINE ZYDIS 5 MG TAB.RAPDIS PO SCH ×2 (12:08→21:00)
[2022-04-20 16:00] VITALS: BP 122/63
--- NOTE | 2022-04-20 18:32 | NUR ---
RN NOTE PATIENT UP IN GERICHAIR, AWAKE. NO SIGNS OF ACUTE DISTRESS NOTED. STABLE ON ROOM AIR, BREATHING EVEN AND UNLABORED. BILATERAL HAND MITTENS IN PLACE TO PREVENT PULLING OUT F/C. COMPLIANT WITH MEDS. F/C PATENT AND INTACT, DRAINING CLEAR YELLOW URINE VIA GRAVITY. ASSISTED WITH ADLS. SAFETY MEASURE MAINTAINED. WILL ENDORSE TO NEXT SHIFT FOR CONTINUITY OF CARE.
[2022-04-20 20:22] VITALS: BP 134/67
[2022-04-20] MEDS: TAMSULOSIN 0.4 MG CAP.SR.24H PO SCH (22:00)
[2022-04-20] MEDS: SIMVASTATIN 10 MG TABLET PO SCH (22:00)
--- NOTE | 2022-04-21 07:20 | NUR ---
GPS RN NOTES RECEIVED PATIENT LYING IN BED, SLEEPING BUT EASILY AWAKEN, A/O X1 GUARDED, LUXEMBOURGER SPEAKING, NO ACUTE DISTRESS NOTED. ON WALLS CATHETER, INTACT, DRAINING WELL WITH DARK YELLOW URINE, OUTPUT OF ABOUT 500 ML, NOTED WITH SCANT SEDIMENTATION. PATIENT ON BILATERAL SOFT HAND MITTENS D/T EPISODE OF PULLING WALLS CATH. SAFETY MEASURES IN PLACE: BED AT LOWEST AND LOCKED POSITION, BED ALARM ON, FREQUENT VISUAL CHECK FOR SAFETY AND MONITORING BEHAVIOR. WILL CONTINUE PLAN OF CARE.
[2022-04-21 08:00] VITALS: BP 151/76
--- NOTE | 2022-04-21 08:40 | NUR ---
RN-CO: DR TERRY ORDERED TO DISCONTINUE WALLS CATHETER AND DO BLADDER SCAN Q 6 HRS. ( TO WEAN THE PATIENT FROM FC.) AND DISCONTINUE THE USE OF MITTENS. NOTED
[2022-04-21] MEDS: POLYETHYLENE GLYCOL 3350 17 GM POWD.PACK PO SCH (09:16)
[2022-04-21] MEDS: ASPIRIN EC 81 MG TABLET.DR PO SCH (09:17)
[2022-04-21] MEDS: Z GUARD REMEDY 4 OZ OINT TP SCH (09:17)
[2022-04-21] MEDS: DIVALPROEX SODIUM 125 MG CAP.SPRINK PO SCH ×3 (09:18→17:20)
[2022-04-21] MEDS: CARVEDILOL 12.5 MG TABLET PO SCH ×2 (09:19→17:21)
[2022-04-21] MEDS: OLANZAPINE 2.5 MG TABLET PO SCH (09:22)
[2022-04-21] MEDS: CYANOCOBALAMIN 500 MCG TABLET PO SCH (09:24)
--- NOTE | 2022-04-21 09:50 | NUR ---
GPS RN NOTES - WALLS CATH AND SOFT RESTRAINTS REMOVED WALLS CATH REMOVED ASEPTICALLY AND SAFELY, DRAINED ABOUT 500 ML OF URINE, NO BLEEDING NOTED. BLADDER SCAN AFTER 6 HOURS TO CHECK FOR URINARY RETENTION. BILATERAL SOFT RESTRAINTS (MITTENS) REMOVED. WILL CONTINUE TO MONITOR PATIENT.
[2022-04-21] MEDS: OLANZAPINE ZYDIS 5 MG TAB.RAPDIS PO SCH ×2 (12:31→17:21)
--- NOTE | 2022-04-21 14:51 | NUR ---
GPS RN NOTES - PATIENT REFUSED TO PARTICIPATE WITH PT.
--- NOTE | 2022-04-21 15:25 | NUR ---
GPS RN NOTES - PATIENT IS STANDING UP, STEADY GAIT, BEING ASSISTED BY MATERIAL CHECKER. PATIENT IS STILL CONFUSED AND MUMBLES WORDS IN GERMAN.
[2022-04-21 16:00] VITALS: BP 118/61
[2022-04-21 17:21] VITALS: BP 118/61
--- NOTE | 2022-04-21 17:30 | NUR ---
GPS RN NOTES - DR HUI ORDERED WALLS CATH INSERTION BACK AND BILATERAL SOFT MITTENS PATIENT HAS HX OF PULLING TUBES OUT.
[2022-04-21] MEDS: clonazePAM 0.5 MG TABLET PO PRN (17:34)
--- NOTE | 2022-04-21 17:34 | NUR ---
GPS RN NOTES - PATIENT SHOWING S/SX OF ANXIETY AND AGITATION, TRYING TO GET OUT OF NEREYDA CHAIR. ADMINISTERED KLONOPIN 0.5 MG PO. WILL CONTINUE TO MONITOR.
--- NOTE | 2022-04-21 18:35 | NUR ---
GPS RN NOTES - WALLS FR 16 INSERTED FOLLOWING ASEPTIC TECHNIQUES PER MD ORDER, PATIENT RETAINING URINE. ABLE TO DRAIN ABOUT 550 ML OF TREY COLORED URINE WITH SCANT SEDIMENTS. PATIENT WAS ABLE TO TOLERATE PROCEDURE. PATIENT HAS BILATERAL SOFT MITTENS D/T HISTORY OF PULLING. WILL ENDORSE TO CELL SUPPORT OPERATOR NURSE.
--- NOTE | 2022-04-21 18:44 | NUR ---
GPS RN CLOSING NOTES PATIENT SLEEPING IN BED, EASILY AWAKEN, A/O X1, CONFUSED, GUARDED, NO DISTRESS NOTED. ON ROOM AIR WITHOUT ANY SOB. WALLS CATHETER AND SOFT BILATERAL MITTENS ARE PLACED BACK PER MD ORDER. ALL DUE MEDS GIVEN, ALL NEEDS MET. SAFETY MEASURES MAINTAINED. KEPT PATIENT SAFE. WILL ENDORSE TO ASPHALT HEATER OPERATOR NURSE.
--- NOTE | 2022-04-21 20:07 | NUR ---
RN NOTE PATIENT HAD A COVID RAPID TEST DONE TODAY WHICH HAS RESULTED IN BEING POSITIVE FOR COVID. ON-CALL, ANA, NOTIFIED. PATIENT IS CURRENTLY AWAITING TRANSFER TO [facility] FOR BED. PATIENT REMAINS O/W STABLE, VS WNL; NO APPARENT COUGH, AFEBRILE, SATTING AT 97% ROOM AIR. WILL CONTINUE TO MONITOR PATIENT.
--- NOTE | 2022-04-21 20:30 | NUR ---
RN NOTE PATIENT WILL BE TRANSFERRED TO [facility]. REPORT GIVEN TO JENNIFER MUNOZ. PATIENT HAS 2200 MEDS. CONTACTED ROLAND IN PHARMACY. ROLAND STATED IT IS OKAY TO GIVE 2200 MEDICATIONS NOW, PRIOR TO TRANSFER. PATIENT REMAINS STABLE.
[2022-04-21] MEDS: TAMSULOSIN 0.4 MG CAP.SR.24H PO SCH (20:39)
[2022-04-21] MEDS: SIMVASTATIN 10 MG TABLET PO SCH (20:39)
--- NOTE | 2022-04-21 21:15 | NUR ---
RN NOTE PATIENT SUCCESSFULLY TRANSFERRED TO [facility], BED 108. JENNIFER MUNOZ, RECEIVED PATIENT. ALL QUESTIONS ANSWERED AT BEDSIDE. PATIENT REMAINED STABLE THROUGHOUT TRANSFER.
--- NOTE | 2022-04-22 08:08 | NUR ---
[facility] Transfer Note: Patient transferred to [facility] due to testing positive for COVID. Dr. Wilson will continue the hold. Patient will be discharged to [facility] located at [address] [place] [address]; ([phone]) when stable. BLACK spoke with Max marr ([phone]) who accepted pt. Patients Kyle Townsend ([phone]).
[2022-04-22] MEDS ORDERED: ACET-868 PO (08:43)
[2022-04-22] MEDS ORDERED: TAMS-12 PO (08:43)
[2022-04-22] MEDS ORDERED: MAG30ORA PO (08:43)
[2022-04-22] MEDS ORDERED: OLAN5TAB3 PO (08:43)
[2022-04-22] MEDS ORDERED: MAGN400O6 PO (08:43)
[2022-04-22] MEDS ORDERED: DIVA125C2 PO (08:43)
== END 2022-04-21 21:09 | disposition short-term general hospital (02) | DRG 885 ==
LOC: GPS 22:20
PROVIDERS: ADMIT Psychiatry & Neurology Psychiatry
DX: F29 Unspecified psychosis not due to a substance or known physiological condition (principal); I11.0 Hypertensive heart disease with heart failure; N17.0 Acute kidney failure with tubular necrosis; I13.0 Hypertensive heart and chronic kidney disease with heart failure and stage 1 through stage 4 chronic kidney disease, or unspecified chronic kidney disease; F03.92 Unspecified dementia, unspecified severity, with psychotic disturbance; E87.6 Hypokalemia; I25.10 Atherosclerotic heart disease of native coronary artery without angina pectoris; I50.9 Heart failure, unspecified; Z95.0 Presence of cardiac pacemaker; Z91.14 Patient's other noncompliance with medication regimen; F25.9 Schizoaffective disorder, unspecified; Z73.6 Limitation of activities due to disability
CPT/HCPCS: 36415; 76770-TC; 80048-TC; 80053-TC; 80061-TC; 80164-TC; 82570-TC; 82962-TC; 84300-TC; 85025-TC; 87081-TC; 87086-TC; 97112-TC; 97116-TC; 97530-TC

== ENCOUNTER 2022-04-21 21:03 | Inpatient (IN) | payer MEDICARE, OTHER ==
[~2022-04-21] VITALS: Ht 175.3 cm; Wt 68.0 kg
[~2022-04-21 21:03] MED LIST: ASPI-1420 PO; CARV25TA2 PO; CHOL100062 PO; CYAN-51 PO; POLY17PO4 PO; QUET25TA PO; SIMV10TA2 PO
[2022-04-21] MEDS ORDERED: Z GUARD REMEDY 4 OZ OINT TP PRN (22:00)
[2022-04-21] MEDS ORDERED: ENOXAPARIN SODIUM 40 MG/0.4 ML DISP.SYRIN SQ ONE (22:00)
[2022-04-21] MEDS ORDERED: ACETAMINOPHEN 325 MG TABLET PO PRN (22:00)
[2022-04-21] MEDS ORDERED: GUAIFENESIN/D-METHORPHAN HB 5 ML UDC PO PRN (22:00)
[2022-04-21] MEDS ORDERED: ONDANSETRON HCL/PF 4 MG/2 ML VIAL IVP PRN (22:00)
[2022-04-21 22:47] VITALS: BP 143/78
--- NOTE | 2022-04-21 23:51 | NUR ---
RN NOTE PT A/O X1 KOREAN SPEAKING IS ABLE TO EXPRESS NEEDS. DOES NOT FOLLOW DIRECTIONS AGITATED/ HOSTILE AT TIMES. IV ACCESS ESTABLISHED ON THE LAC #20G S/L .PT NOTED WITH FC IN PLACE PER GPS NURSE PT HAS URINARY RETENTION THAT IS THE REASON FOR THE FC NOTED WITH TREY COLOR URINE. PT WAS AMBULATED TO BED NOTED PT GAIT IS UNSTEADY EVEN WITH TWO PERSON ASSISTANCE. PT NOTED WITH BLE KNEE SCABS AND DISCOLORATION PHOTOS TAKEN AND PLACE DIN CHART. PT NON COMPLIANT WITH SAFET MEASURES KEEPTS TRYIN TO GET UP AND PULL OUT FC BILATERAL WRIST RESTRAINTS ORDERED.
--- NOTE | 2022-04-22 05:00 | NUR ---
NURSE SERVICE STATION OPERATOR AWARE THAT PATIENT HAD AN ORDER FOR SITTER 1:1, PATIENT ON BILATERAL RESTRAINS AND CONTINUE TO GET UP FROM BED. WITH HX OF SUICIDAL IDEATION IN GPS UNIT, PATIENT TRANSFER FROM GPS FOR ISOLATION POSITIVE COVID.
[2022-04-22 05:02] VITALS: BP 119/71
--- NOTE | 2022-04-22 06:23 | NUR ---
RN NOTE PT A/O X1 PERSIAN SPEAKING IS ABLE TO EXPRESS NEEDS. DOES NOT FOLLOW DIRECTIONS AGITATED/ HOSTILE AT TIMES. CURRENTLY ASLEEP. IV ACCESS ON THE LAC #20G S/L .PT NOTED WITH FC IN PLACE PER GPS NURSE PT HAS URINARY RETENTION THAT IS THE REASON FOR THE FC NOTED WITH DARK TREY COLOR URINE. PT CONTINUED TO BE NON COMPLIANT WITH SAFETY MEASURES KEEPS TRYING TO GET UP AND PULL OUT FC BILATERAL WRIST RESTRAINTS STILL ON. CIRCULATION CHECKED Q2HRS. BED IN LOWEST POSITION AND LOCKED. BED ALARM ON. BILATERAL SIDE RAILS UP X3. HOB ELEVATED FOR SAFETY. WILL ENDORSE CARE TO DAY SHIFT NURSE.
[2022-04-22 07:08] LABS: BASOPHILS # (AUTO) 0.1 K/uL (0.0-0.2); BASOPHILS % (AUTO) 0.9 % (0.0-2.0); EOSINOPHILS % (AUTO) 2.3 % (0.0-6.0); HEMATOCRIT 37 % (39-51); HEMOGLOBIN 12.1 g/dL (13.5-17.5); LYMPHOCYTES # (AUTO) 1.4 K/uL (0.8-4.8); MEAN CORPUSCULAR HGB CONC 33 g/dl (31.0-36.0); MEAN CORPUSCULAR VOLUME 88 fL (80-96); MONOCYTES # (AUTO) 1.6 K/uL (0.1-1.30); MONOCYTES % (AUTO) 26.1 % (2.0-12.0); NEUTROPHILS # (AUTO) 2.8 K/uL (1.8-8.9); NEUTROPHILS % (AUTO) 47.7 % (43.0-81.0); PLATELET COUNT (AUTO) 225 K/uL (150-450); RED BLOOD CELL COUNT(AUTO) 4.17 MIL/uL (4.5-6.0); WHITE BLOOD COUNT (AUTO) 5.9 K/uL (4.3-11.0)
--- NOTE | 2022-04-22 07:13 | NUR ---
MED SURG OPENING NOTES: RECEIVED PATIENT IN BED, ASLEEP BUT EASILY AROUSES TO VOICE AND TACTILE STIMULI. PATIENT DOES NOT ANSWER TO NAME AND MUMBLES WORDS IN [place]. NO S/S PAIN OR DISCOMFORT AT THIS TIME. ON RA WITH OXYGEN SATURATION OF 98%. NO RESPIRATORY DISTRESS NOTED, BREATHING EVEN AND UNLABORED. PATIENT HAS IV ACCESS ON LEFT ANTECUBITAL AREA, SITE PATENT, INTACT AND FLUSHES WELL WITH NO S/S INFILTRATION NOTED. BILATERAL SOFT WRIST RESTRAINTS APPLIED FOR SAFETY, BOTH HANDS NOTED WITH GOOD CIRCULATION AND WITH GOOD CAPILLARY REFILL, WILL RELEASE AND EXERCISE EVERY HOUR. ALL SAFETY MEASURES IN PLACE. BED LOCKED AND IN LOWEST POSITION WITH BED ALARM ON. CALL LIGHT WITHIN REACH. WILL CONTINUE TO MONITOR PATIENT THROUGHOUT SHIFT.
[2022-04-22 07:39] LABS: CALCIUM, SERUM 8.6 mg/dL (8.5-10.1); CREATININE 1.2 mg/dL (0.6-1.3); MAGNESIUM 2.1 mg/dL (1.8-2.4); PHOSPHORUS 3.1 mg/dL (2.5-4.9); POTASSIUM 3.6 mmol/L (3.5-5.1)
[2022-04-22 07:52] LABS: C-REACTIVE PROTEIN 11.3 mg/dL (0.0-0.9)
[2022-04-22] MEDS: PANTOPRAZOLE 40 MG TABLET.DR PO SCH (08:00)
--- NOTE | 2022-04-22 08:09 | NUR ---
BLACK Transfer Note: Patient transferred to [facility] due to testing positive for COVID. Dr. Wilson will continue the hold. Patient will be discharged to [facility] located at [address] [place] [address]; ([phone]) when stable. BLACK spoke with Max marr ([phone]) who accepted pt. Patients Kyle Townsend ([phone]).
[2022-04-22] MEDS ORDERED: ACET-868 PO (08:43)
[2022-04-22] MEDS ORDERED: TAMS-12 PO (08:43)
[2022-04-22] MEDS ORDERED: DIVA125C2 PO (08:43)
[2022-04-22] MEDS ORDERED: MAGN400O6 PO (08:43)
[2022-04-22] MEDS ORDERED: OLAN5TAB3 PO (08:43)
[2022-04-22] MEDS ORDERED: MAG30ORA PO (08:43)
[2022-04-22 12:02] LABS: BAND % (MANUAL) 6 % (0.0-5.0); EOSINOPHILS % (MANUAL) 3 % (0-4); LYMPHOCYTES % (MANUAL) 28 % (16-48); MONOCYTES % (MANUAL) 19 % (0-11.0); NEUTROPHILS % (MANUAL) 44 (42-76)
--- NOTE | 2022-04-22 14:08 | NUR ---
SPOKE WITH DR. JASMINE TO PLEASE RECONCILE MEDS FOR THE PATIENT INCLUDING HIS PSYCH MEDS - ZYPREXA AND DEPAKOTE
[2022-04-22] MEDS ORDERED: MAG HYDROX/AL HYDROX/SIMETH 30 ML UDC PO PRN (16:30)
[2022-04-22] MEDS ORDERED: ACETAMINOPHEN 325 MG TABLET PO PRN (16:30)
[2022-04-22] MEDS ORDERED: MAGNESIUM HYDROXIDE 30 ML UDC PO PRN (16:30)
--- NOTE | 2022-04-22 16:59 | NUR ---
DR LEON (PSYCHIATRIST) CAME BY AND SAID TO CONTINUE ZYPREXA AND DEPAKOTE PREVIOUSLY ORDERED FOR THE PATIENT.
[2022-04-22] MEDS: LEVOFLOXACIN 750 MG /D5W 150ML 150 ML IV SCH (17:12)
[2022-04-22] MEDS: CARVEDILOL 12.5 MG TABLET PO SCH (17:13)
[2022-04-22] MEDS: OLANZAPINE 5 MG TABLET PO SCH (17:13)
[2022-04-22] MEDS: DIVALPROEX SODIUM 125 MG CAP.SPRINK PO SCH (17:13)
--- NOTE | 2022-04-22 18:46 | NUR ---
MED SURG CLOSING NOTES: PATIENT IN BED, ASLEEP BUT EASILY AROUSES TO VOICE AND TOUCH. PATIENT HAS PERIODS OF CONFUSION AND MUMBLES IN SUDANESE. NO RESPIRATORY DISTRESS NOTED THROUGHOUT SHIFT. ON RA WITH OXYGEN SATURATION OF 98%. IV ACCESS ON LEFT ANTECUBITAL AREA, SITE PATENT, INTACT AND FLUSHES WELL WITH NO S/S INFILTRATION NOTED. BILATERAL SOFT WRIST RESTRAINTS APPLIED FOR SAFETY, BOTH HANDS NOTED WITH GOOD CIRCULATION AND WITH GOOD CAPILLARY REFILL, RELEASED AND PERFORMED PASSIVE ROM. ALL SAFETY MEASURES IMPLEMENTED. BED LOCKED AND IN LOWEST POSITION WITH BED ALARM ON. CALL LIGHT WITHIN REACH. WILL ENDORSE TO INCOMING NURSE FOR CONTINUITY OF CARE
[2022-04-22] MEDS: TAMSULOSIN 0.4 MG CAP.SR.24H PO SCH (21:52)
[2022-04-22] MEDS: SIMVASTATIN 10 MG TABLET PO SCH (21:52)
[2022-04-22] MEDS: ENOXAPARIN SODIUM 40 MG/0.4 ML DISP.SYRIN SQ SCH (21:53)
--- NOTE | 2022-04-23 06:34 | NUR ---
RN CLOSING NOTE; PT IN BED SLEEPING BUT EASY TO AROUSED,ADIS WELL ON RM AIR SATTING 98%,COVID POSITIVE PT,SAFETY PROTOCOL IMPLEMENTED, NO SIGN SOB/DISTRESS NOTED,BREATHING EVEN AND UNLABORED,NO COMPLAINED OF PAIN/DISCOMFORT DURING SHIFT,DUE MEDS GIVEN ORDER,ALL NEEDS ATTENDED,SAFETY MEASURED IN PLACE.CALL LIGHT WITHIN REACH,WILL ENDORSED TO NEXT SHIFT.
[2022-04-23 06:40] LABS: BASOPHILS % (AUTO) 0.6 % (0.0-2.0); EOSINOPHILS % (AUTO) 0.6 % (0.0-6.0); HEMATOCRIT 42 % (39-51); HEMOGLOBIN 13.9 g/dL (13.5-17.5); LYMPHOCYTES # (AUTO) 1.4 K/uL (0.8-4.8); LYMPHOCYTES % (AUTO) 18.6 % (20.0-44.0); MEAN CORPUSCULAR HGB CONC 33 g/dl (31.0-36.0); MEAN CORPUSCULAR VOLUME 88 fL (80-96); MONOCYTES # (AUTO) 1.1 K/uL (0.1-1.30); MONOCYTES % (AUTO) 14.4 % (2.0-12.0); NEUTROPHILS % (AUTO) 65.8 % (43.0-81.0); PLATELET COUNT (AUTO) 244 K/uL (150-450); RED BLOOD CELL COUNT(AUTO) 4.71 MIL/uL (4.5-6.0); WHITE BLOOD COUNT (AUTO) 7.6 K/uL (4.3-11.0)
--- NOTE | 2022-04-23 07:10 | NUR ---
STAFF FORESTER NOTES Received pt awake in bed AOx1 and eritrean speaking only. No complaints of pain or discomfort at this time. Pt is on RA and tolerating it well. IV access on LAC 20G SL patent and intact. HOB elevated to pts comfort. Siderails up x2. Bed at its lowest height and locked for safety. Call light within reach. Will continue current plan of care.
[2022-04-23 07:34] LABS: CALCIUM, SERUM 9.2 mg/dL (8.5-10.1); CARBON DIOXIDE 29 mmol/L (21-32); CHLORIDE 100 mmol/L (98-107); CREATININE 1.2 mg/dL (0.6-1.3); GLUCOSE 97 mg/dL (74-106); MAGNESIUM 2.2 mg/dL (1.8-2.4); PHOSPHORUS 2.9 mg/dL (2.5-4.9); POTASSIUM 3.8 mmol/L (3.5-5.1); SODIUM SERUM 137 mmol/L (136-145); UREA NITROGEN, BLOOD 21 mg/dL (7-18)
[2022-04-23 08:00] VITALS: BP 120/69
[2022-04-23] MEDS: PANTOPRAZOLE 40 MG TABLET.DR PO SCH (08:08)
[2022-04-23] MEDS: ASPIRIN EC 81 MG TABLET.DR PO SCH (08:52)
[2022-04-23] MEDS: POLYETHYLENE GLYCOL 3350 17 GM POWD.PACK PO SCH (08:52)
[2022-04-23] MEDS: DIVALPROEX SODIUM 125 MG CAP.SPRINK PO SCH ×3 (08:52→17:21)
[2022-04-23] MEDS: OLANZAPINE 5 MG TABLET PO SCH ×3 (08:52→17:21)
[2022-04-23] MEDS: CARVEDILOL 12.5 MG TABLET PO SCH ×2 (08:53→17:00)
[2022-04-23] MEDS: CYANOCOBALAMIN 500 MCG TABLET PO SCH (08:53)
[2022-04-23 16:00] VITALS: BP 119/69
[2022-04-23] MEDS: LEVOFLOXACIN 750 MG /D5W 150ML 150 ML IV SCH (16:18)
--- NOTE | 2022-04-23 17:21 | NUR ---
HEAD NURSE NOTES Coreg 25mg help d/t pts HR < 60, HR is at 58.
[2022-04-23] MEDS: SIMVASTATIN 10 MG TABLET PO SCH (21:01)
[2022-04-23] MEDS: ENOXAPARIN SODIUM 40 MG/0.4 ML DISP.SYRIN SQ SCH (21:01)
[2022-04-23] MEDS: TAMSULOSIN 0.4 MG CAP.SR.24H PO SCH (21:01)
[2022-04-24] VITALS: BP 107/54
[2022-04-24 06:54] LABS: BASOPHILS % (AUTO) 0.3 % (0.0-2.0); EOSINOPHILS % (AUTO) 3.2 % (0.0-6.0); HEMATOCRIT 38 % (39-51); HEMOGLOBIN 12.5 g/dL (13.5-17.5); LYMPHOCYTES # (AUTO) 2.4 K/uL (0.8-4.8); LYMPHOCYTES % (AUTO) 39.2 % (20.0-44.0); MEAN CORPUSCULAR HGB CONC 33 g/dl (31.0-36.0); MEAN CORPUSCULAR VOLUME 89 fL (80-96); MONOCYTES # (AUTO) 0.9 K/uL (0.1-1.30); MONOCYTES % (AUTO) 15.4 % (2.0-12.0); NEUTROPHILS # (AUTO) 2.5 K/uL (1.8-8.9); NEUTROPHILS % (AUTO) 41.9 % (43.0-81.0); PLATELET COUNT (AUTO) 223 K/uL (150-450); RED BLOOD CELL COUNT(AUTO) 4.32 MIL/uL (4.5-6.0); WHITE BLOOD COUNT (AUTO) 6.1 K/uL (4.3-11.0)
--- NOTE | 2022-04-24 07:15 | NUR ---
PROJECT SPECIALIST OPENING NOTES Received pt awake in bed AOx2 Argentine speaking. No complaints of pain or discomfort at this time. Pt is on RA and tolerating it well. IV access on LAC 20G patent and intact. HOB elevated to pts comfort. Pt currently has wrist restraints d/t pt pulling out life sustaining tubes. Skin intact and checked. HOB elevated to pts comfort. Siderails up x2 at all times. Call light within reach. Will continue to monitor.
[2022-04-24 07:25] LABS: CALCIUM, SERUM 8.8 mg/dL (8.5-10.1); CREATININE 1.2 mg/dL (0.6-1.3); MAGNESIUM 2.4 mg/dL (1.8-2.4); PHOSPHORUS 3.2 mg/dL (2.5-4.9); POTASSIUM 4.3 mmol/L (3.5-5.1)
[2022-04-24] MEDS: PANTOPRAZOLE 40 MG TABLET.DR PO SCH (07:53)
[2022-04-24 08:00] VITALS: BP 152/79
[2022-04-24] MEDS: POLYETHYLENE GLYCOL 3350 17 GM POWD.PACK PO SCH (08:03)
[2022-04-24] MEDS: OLANZAPINE 5 MG TABLET PO SCH ×3 (08:03→16:44)
[2022-04-24] MEDS: ASPIRIN EC 81 MG TABLET.DR PO SCH (08:03)
[2022-04-24] MEDS: CARVEDILOL 12.5 MG TABLET PO SCH ×2 (08:04→16:44)
[2022-04-24] MEDS: CYANOCOBALAMIN 500 MCG TABLET PO SCH (08:04)
[2022-04-24] MEDS: DIVALPROEX SODIUM 125 MG CAP.SPRINK PO SCH ×3 (08:04→16:44)
[2022-04-24] MEDS: LEVOFLOXACIN (250MG) 250 MG TABLET PO SCH (13:36)
[2022-04-24 16:00] VITALS: BP 140/75
--- NOTE | 2022-04-24 18:21 | NUR ---
CLIENT BUSINESS MANAGER CLOSING NOTES All due meds and tx given as ordered. pt tolerated everything well. All needs attended to. Pt is on RA and tolerating it well. No complaints of pain or discomfort at this time. IV aceess on RAC 20G patent and intact. HOB elevated to pts comfort. Siderails up x2 at all times. Call light within reach. Will endorse to oncoming nurse.
--- NOTE | 2022-04-24 18:52 | NUR ---
BOILER OPERATOR HELPER NOTES Pt got out of the soft restraints and found standing undressed standing in his room and pulling on his kendrick catheter. Blood tinges unrine notes in kendrick bag. CN aware.
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
[2022-04-24 20:00] VITALS: BP 128/84
[2022-04-24 22:53] LABS: BAND % (MANUAL) 3 % (0.0-5.0); EOSINOPHILS % (MANUAL) 2 % (0-4); LYMPHOCYTES % (MANUAL) 32 % (16-48); MONOCYTES % (MANUAL) 15 % (0-11.0); NEUTROPHILS % (MANUAL) 48 (42-76)
[2022-04-24] MEDS: TAMSULOSIN 0.4 MG CAP.SR.24H PO SCH (23:21)
[2022-04-24] MEDS: SIMVASTATIN 10 MG TABLET PO SCH (23:21)
[2022-04-24] MEDS: ENOXAPARIN SODIUM 40 MG/0.4 ML DISP.SYRIN SQ SCH (23:22)
[2022-04-25 04:00] VITALS: BP 139/73
--- NOTE | 2022-04-25 07:33 | NUR ---
TRAILER PARK MANAGER OPENING NOTES Received pt awake in bed AOx2 Sierra Leonean speaking. No complaints of pain or discomfort at this time. Pt is on RA and tolerating it well. IV access on LAC 20G patent and intact. HOB elevated to pts comfort. Pt currently has wrist restraints d/t pt pulling out life sustaining tubes. Pt has a 1:1 sitter. Skin intact and checked. HOB elevated to pts comfort. Siderails up x2 at all times. Call light within reach. Will continue to monitor.
[2022-04-25 08:00] VITALS: BP 120/68
[2022-04-25 08:10] LABS: BASOPHILS % (AUTO) 0.2 % (0.0-2.0); EOSINOPHILS % (AUTO) 4.2 % (0.0-6.0); HEMATOCRIT 41 % (39-51); HEMOGLOBIN 13.1 g/dL (13.5-17.5); LYMPHOCYTES % (AUTO) 46.8 % (20.0-44.0); MEAN CORPUSCULAR HGB CONC 32 g/dl (31.0-36.0); MEAN CORPUSCULAR VOLUME 88 fL (80-96); MONOCYTES % (AUTO) 14.5 % (2.0-12.0); NEUTROPHILS % (AUTO) 34.3 % (43.0-81.0); PLATELET COUNT (AUTO) 269 K/uL (150-450); RED BLOOD CELL COUNT(AUTO) 4.59 MIL/uL (4.5-6.0); WHITE BLOOD COUNT (AUTO) 4.7 K/uL (4.3-11.0)
[2022-04-25 08:11] LABS: LYMPHOCYTES # (AUTO) 2.2 K/uL (0.8-4.8); MONOCYTES # (AUTO) 0.7 K/uL (0.1-1.30); NEUTROPHILS # (AUTO) 1.6 K/uL (1.8-8.9)
[2022-04-25] MEDS: PANTOPRAZOLE 40 MG TABLET.DR PO SCH (08:17)
[2022-04-25 08:26] LABS: CALCIUM, SERUM 8.9 mg/dL (8.5-10.1); CREATININE 1.2 mg/dL (0.6-1.3); MAGNESIUM 2.3 mg/dL (1.8-2.4); PHOSPHORUS 2.9 mg/dL (2.5-4.9); POTASSIUM 3.6 mmol/L (3.5-5.1)
[2022-04-25] MEDS: DIVALPROEX SODIUM 125 MG CAP.SPRINK PO SCH ×3 (08:59→16:44)
[2022-04-25] MEDS: OLANZAPINE 5 MG TABLET PO SCH ×3 (08:59→16:44)
[2022-04-25] MEDS: POLYETHYLENE GLYCOL 3350 17 GM POWD.PACK PO SCH (08:59)
[2022-04-25] MEDS: CARVEDILOL 12.5 MG TABLET PO SCH ×2 (09:00→16:44)
[2022-04-25] MEDS: ASPIRIN EC 81 MG TABLET.DR PO SCH (09:00)
[2022-04-25] MEDS: CYANOCOBALAMIN 500 MCG TABLET PO SCH (09:00)
[2022-04-25] MEDS ORDERED: LEVO250T59 PO (09:30)
--- NOTE | 2022-04-25 12:26 | NUR ---
TELEPHONIC CASE MANAGER NOTES New order from Dr. Ortiz to remove soft restraints and kendrick catheter. Noted and carried out.
[2022-04-25] MEDS: LEVOFLOXACIN (250MG) 250 MG TABLET PO SCH (12:30)
[2022-04-25 16:00] VITALS: BP 128/74
--- NOTE | 2022-04-25 16:44 | NUR ---
BUSINESS MANAGER NOTES Coreg not given d/t HR at 50.
--- NOTE | 2022-04-25 18:32 | NUR ---
CEMENT CUTTER CLOSING NOTES All due meds and tx given as ordered. Pt tolerated everything well. All needs attended to. Pt is currently on RA and tolerating it well. IV access on on LAC 20G patent and intact. Siderails up x2 at all times. HOB elevated to pts comfort. Pt has 1:1 sitter. Will endorse to oncoming nurse.
[2022-04-25] MEDS: TAMSULOSIN 0.4 MG CAP.SR.24H PO SCH (20:58)
[2022-04-25] MEDS: SIMVASTATIN 10 MG TABLET PO SCH (20:58)
[2022-04-25] MEDS: ENOXAPARIN SODIUM 40 MG/0.4 ML DISP.SYRIN SQ SCH (20:58)
[2022-04-26] VITALS: BP 142/62
[2022-04-26 06:54] LABS: BASOPHILS % (AUTO) 0.3 % (0.0-2.0); EOSINOPHILS % (AUTO) 3.8 % (0.0-6.0); HEMATOCRIT 40 % (39-51); HEMOGLOBIN 13.1 g/dL (13.5-17.5); LYMPHOCYTES # (AUTO) 1.7 K/uL (0.8-4.8); LYMPHOCYTES % (AUTO) 32.9 % (20.0-44.0); MEAN CORPUSCULAR HGB CONC 33 g/dl (31.0-36.0); MEAN CORPUSCULAR VOLUME 88 fL (80-96); MONOCYTES # (AUTO) 0.7 K/uL (0.1-1.30); MONOCYTES % (AUTO) 12.6 % (2.0-12.0); NEUTROPHILS # (AUTO) 2.6 K/uL (1.8-8.9); NEUTROPHILS % (AUTO) 50.4 % (43.0-81.0); PLATELET COUNT (AUTO) 265 K/uL (150-450); RED BLOOD CELL COUNT(AUTO) 4.51 MIL/uL (4.5-6.0); WHITE BLOOD COUNT (AUTO) 5.2 K/uL (4.3-11.0)
[2022-04-26] MEDS: PANTOPRAZOLE 40 MG TABLET.DR PO SCH (07:39)
[2022-04-26] MEDS: CYANOCOBALAMIN 500 MCG TABLET PO SCH (07:39)
[2022-04-26] MEDS: DIVALPROEX SODIUM 125 MG CAP.SPRINK PO SCH ×3 (07:40→16:36)
[2022-04-26] MEDS: ASPIRIN EC 81 MG TABLET.DR PO SCH (07:40)
[2022-04-26] MEDS: OLANZAPINE 5 MG TABLET PO SCH ×3 (07:41→16:36)
[2022-04-26] MEDS: POLYETHYLENE GLYCOL 3350 17 GM POWD.PACK PO SCH (07:41)
[2022-04-26 07:55] LABS: CREATININE 1.2 mg/dL (0.6-1.3); MAGNESIUM 2.4 mg/dL (1.8-2.4); PHOSPHORUS 3.1 mg/dL (2.5-4.9); POTASSIUM 4.2 mmol/L (3.5-5.1)
[2022-04-26 08:00] VITALS: BP 131/83
[2022-04-26] MEDS: CARVEDILOL 12.5 MG TABLET PO SCH ×2 (08:07→16:37)
[2022-04-26] MEDS: LORAZEPAM 1 MG TABLET PO PRN ×2 (10:42→20:49)
--- NOTE | 2022-04-26 10:45 | NUR ---
ATIVAN 1MG PO GIVEN DUE TO RESTLESSNESS AND TRYING TO GET OUT OF BED.
[2022-04-26] MEDS: LEVOFLOXACIN (250MG) 250 MG TABLET PO SCH (12:08)
[2022-04-26 16:00] VITALS: BP 148/76
[2022-04-26 20:00] VITALS: BP 136/76
[2022-04-26] MEDS: ENOXAPARIN SODIUM 40 MG/0.4 ML DISP.SYRIN SQ SCH (20:50)
[2022-04-26] MEDS: SIMVASTATIN 10 MG TABLET PO SCH (20:53)
[2022-04-26] MEDS: TAMSULOSIN 0.4 MG CAP.SR.24H PO SCH (20:53)
[2022-04-27] VITALS: BP 130/76
[2022-04-27] MEDS: PANTOPRAZOLE 40 MG TABLET.DR PO SCH (06:01)
--- NOTE | 2022-04-27 07:10 | NUR ---
RN OPENING NOTE PT IS IN BED SLEEPING, BREATHING UNLABORED ON RM AIR SATTING 97%,NO SIGN OF SOB/DISTRESS NOTED. IV ACCESS LEFT AC #20g SALINE LOCKED. PATIENT HAS BILATERAL SOFT RESTRAINS ON, SAFETY MEASURED IN PLACE.CALL LIGHT WITHIN REACH, WILL CONTINUE TO MONITOR.
[2022-04-27 08:00] VITALS: BP 155/81
[2022-04-27] MEDS: DIVALPROEX SODIUM 125 MG CAP.SPRINK PO SCH ×3 (08:20→17:19)
[2022-04-27] MEDS: ASPIRIN EC 81 MG TABLET.DR PO SCH (08:20)
[2022-04-27] MEDS: POLYETHYLENE GLYCOL 3350 17 GM POWD.PACK PO SCH (08:20)
[2022-04-27] MEDS: CYANOCOBALAMIN 500 MCG TABLET PO SCH (08:20)
[2022-04-27] MEDS: CARVEDILOL 12.5 MG TABLET PO SCH ×2 (08:20→17:21)
[2022-04-27] MEDS: OLANZAPINE 5 MG TABLET PO SCH ×3 (08:20→17:21)
[2022-04-27] MEDS: LEVOFLOXACIN (250MG) 250 MG TABLET PO SCH (13:20)
[2022-04-27 16:00] VITALS: BP 125/74
--- NOTE | 2022-04-27 19:15 | NUR ---
RN CLOSING NOTE PT IN BED SLEEPING BUT EASY TO AROUSED,ON RM AIR SATTING 98%, NO SIGN SOB/DISTRESS NOTED,BREATHING EVEN AND UNLABORED,NO COMPLAINED OF PAIN/DISCOMFORT DURING SHIFT,DUE MEDS GIVEN ORDER,ALL NEEDS ATTENDED,SAFETY MEASURED IN PLACE.CALL LIGHT WITHIN REACH,WILL ENDORSED TO NEXT SHIFT.
[2022-04-27 20:00] VITALS: BP 111/61
[2022-04-27] MEDS: TAMSULOSIN 0.4 MG CAP.SR.24H PO SCH (21:09)
[2022-04-27] MEDS: SIMVASTATIN 10 MG TABLET PO SCH (21:09)
[2022-04-27] MEDS: ENOXAPARIN SODIUM 40 MG/0.4 ML DISP.SYRIN SQ SCH (21:10)
[2022-04-28 04:00] VITALS: BP 115/65
--- NOTE | 2022-04-28 06:51 | NUR ---
END OF SHIFT, PATIENT IN BED, AWAKE AT THIS TIME, AT ROOM AIR, NO SOB/ACUTE DISTRESS NOTED, ON BILATERAL SOFT WRIST RESTRAINS, NO CIRCULATION COMPROMISED OR ABNORMALITY NOTED AT BEDSIDE, VITAL SIGNS STABLE, NO DIRRUPTIVE BEHAVIOR NOTED DURING THE NIGHT, ALL SAFETY PRECAUTIONS MANTAINED, WILL ENDORSE CONTINUITY OF CARE TO ONCOMING NURSE.
--- NOTE | 2022-04-28 07:10 | NUR ---
MANAGER FOOD BEVERAGE OPENING NOTES Received pt awake in bed AOX1 with episodes of confusion. Pt is currently on RA and tolerating it well. IV access on LAC SL patent and intact. Pt has wrist restraints on d/t pulling on life sustaining lines. HOB elevated to pts comfort. Siderails up at all times x2. Bed at its lowest setting and locked with bed alarm on. Call light within reach. Will continue current plan of care.
[2022-04-28 08:00] VITALS: BP 123/74
[2022-04-28] MEDS: OLANZAPINE 5 MG TABLET PO SCH ×2 (08:19→16:29)
[2022-04-28] MEDS: POLYETHYLENE GLYCOL 3350 17 GM POWD.PACK PO SCH (08:19)
[2022-04-28] MEDS: PANTOPRAZOLE 40 MG TABLET.DR PO SCH (08:20)
[2022-04-28] MEDS: DIVALPROEX SODIUM 125 MG CAP.SPRINK PO SCH ×3 (08:20→16:29)
[2022-04-28] MEDS: CYANOCOBALAMIN 500 MCG TABLET PO SCH (08:20)
[2022-04-28] MEDS: ASPIRIN EC 81 MG TABLET.DR PO SCH (08:20)
[2022-04-28] MEDS: CARVEDILOL 12.5 MG TABLET PO SCH ×2 (08:20→16:27)
--- NOTE | 2022-04-28 09:00 | NUR ---
GOVERNMENT MINISTER NOTES Coreg held d/t HR <60, HR is at 58.
--- NOTE | 2022-04-28 11:25 | NUR ---
CERTIFIED INDUSTRIAL HYGIENIST NOTES Pt seen by Dr. Wilson with new orders to increase Zyprexa.
[2022-04-28] MEDS: LEVOFLOXACIN (250MG) 250 MG TABLET PO SCH (12:34)
--- NOTE | 2022-04-28 15:21 | NUR ---
MEDICAL CENTER MANAGER NOTES\ New order from MD to d/c soft wrist restraints. Noted and carried out.
[2022-04-28 16:00] VITALS: BP 122/68
--- NOTE | 2022-04-28 16:28 | NUR ---
PEOPLESOFT FUNCTIONAL ANALYST NOTES Coreg not given d/t pt HR @ 50.
--- NOTE | 2022-04-28 18:32 | NUR ---
MANAGER APPLE CLOSING NOTES All due meds and tx given as ordered. Pt tolerated everything well. All needs attended to. Pt is currently on RA and tolerating it well. IV access on LAC SL patent and intact. HOB elevated to pts comfort. Siderails up at all times x2. Bed at its lowest setting and locked. Call light within reach. Will endorse to oncoming nurse.
[2022-04-28 20:00] VITALS: BP 122/81
[2022-04-28] MEDS: TAMSULOSIN 0.4 MG CAP.SR.24H PO SCH (21:18)
[2022-04-28] MEDS: SIMVASTATIN 10 MG TABLET PO SCH (21:19)
[2022-04-28] MEDS: ENOXAPARIN SODIUM 40 MG/0.4 ML DISP.SYRIN SQ SCH (21:19)
[2022-04-29 04:00] VITALS: BP 135/73
--- NOTE | 2022-04-29 06:07 | NUR ---
END OF SHIFT, PATIENT IN BED, AWAKE AT THIS TIME, WITH INTERMITTENT SLEEP PATTERN, AT ROOM AIR, NO SOB/ACUTE DISTRESS NOTED, OFF RESTRAINS, VITAL SIGNS STABLE, NO DISRUPTIVE BEHAVIOR NOTED DURING THE NIGHT, ALL SAFETY PRECAUTIONS MAINTAINED, WILL ENDORSE CONTINUITY OF CARE TO ONCOMING NURSE.
[2022-04-29 07:26] LABS: BASOPHILS % (AUTO) 0.6 % (0.0-2.0); HEMATOCRIT 36 % (39-51); HEMOGLOBIN 11.9 g/dL (13.5-17.5); LYMPHOCYTES # (AUTO) 1.8 K/uL (0.8-4.8); LYMPHOCYTES % (AUTO) 44.7 % (20.0-44.0); MEAN CORPUSCULAR HGB CONC 33 g/dl (31.0-36.0); MEAN CORPUSCULAR VOLUME 88 fL (80-96); MONOCYTES # (AUTO) 0.5 K/uL (0.1-1.30); MONOCYTES % (AUTO) 13.3 % (2.0-12.0); NEUTROPHILS # (AUTO) 1.3 K/uL (1.8-8.9); NEUTROPHILS % (AUTO) 33.4 % (43.0-81.0); PLATELET COUNT (AUTO) 246 K/uL (150-450); RED BLOOD CELL COUNT(AUTO) 4.11 MIL/uL (4.5-6.0); WHITE BLOOD COUNT (AUTO) 3.9 K/uL (4.3-11.0)
[2022-04-29 07:54] LABS: CALCIUM, SERUM 8.8 mg/dL (8.5-10.1); CREATININE 1.2 mg/dL (0.6-1.3); MAGNESIUM 2.2 mg/dL (1.8-2.4); PHOSPHORUS 2.7 mg/dL (2.5-4.9); POTASSIUM 3.7 mmol/L (3.5-5.1)
[2022-04-29] MEDS: DIVALPROEX SODIUM 125 MG CAP.SPRINK PO SCH (08:44)
[2022-04-29] MEDS: POLYETHYLENE GLYCOL 3350 17 GM POWD.PACK PO SCH (08:44)
[2022-04-29] MEDS: ASPIRIN EC 81 MG TABLET.DR PO SCH (08:44)
[2022-04-29] MEDS: PANTOPRAZOLE 40 MG TABLET.DR PO SCH (08:44)
[2022-04-29 08:45] VITALS: BP 107/74
[2022-04-29] MEDS: OLANZAPINE 5 MG TABLET PO SCH (08:45)
[2022-04-29] MEDS: CARVEDILOL 12.5 MG TABLET PO SCH (08:45)
[2022-04-29] MEDS: CYANOCOBALAMIN 500 MCG TABLET PO SCH (08:45)
--- NOTE | 2022-04-29 09:40 | NUR ---
RN CHANGE SHIFT REPORT I MOVED TO ICU AND THIS THE REPORT FOR THIS PATIENT GIVEN TO GRAND COLEMAN FOR CONTINUE OF CARE. ALL AM MEDS GIVEN. CRUSHED MEDS WITH APPLE SAUCE.
--- NOTE | 2022-04-29 10:58 | NUR ---
PATIENT WILL BE DISCHARGED TODAY TO [facility] VIA AMBULANCE, REPORT GIVEN TO CHARGE NURSE LIDYA. PERIPHERAL IV LINE DISCONTINUED (LAC).
--- NOTE | 2022-04-29 12:31 | NUR ---
PATIENT DISCHARGED VIA AMBULANCE TO [facility], PATIENT IS AWAKE, ALERT, ORIENTEDX1, VITAL SIGNS ARE STABLE, NO SIGNS OF IN DISTRESS, UNLABORED BREATHING.
== END 2022-04-29 17:52 | DRG 177 ==
LOC: TELE-TD 21:03 → MEDSG1 21:28
PROVIDERS: ADMIT Student in an Organized Health Care Education/Training Program; ATTEND Nurse Practitioner Acute Care
DX: U07.1 COVID-19 (principal); G92.8 Other toxic encephalopathy; N17.0 Acute kidney failure with tubular necrosis; E44.0 Moderate protein-calorie malnutrition; F02.818 Dementia in other diseases classified elsewhere, unspecified severity, with other behavioral disturbance; Z20.822 Contact with and (suspected) exposure to COVID-19; F29 Unspecified psychosis not due to a substance or known physiological condition; Z73.6 Limitation of activities due to disability; I25.10 Atherosclerotic heart disease of native coronary artery without angina pectoris; I11.0 Hypertensive heart disease with heart failure; I50.9 Heart failure, unspecified; D64.9 Anemia, unspecified; E11.9 Type 2 diabetes mellitus without complications; E88.09 Other disorders of plasma-protein metabolism, not elsewhere classified; F25.9 Schizoaffective disorder, unspecified; G30.9 Alzheimer's disease, unspecified; Z78.9 Other specified health status; Z79.899 Other long term (current) drug therapy; Z91.199 Patient's noncompliance with other medical treatment and regimen due to unspecified reason
CPT/HCPCS: 36415; 71045-TC; 71250-TC; 80048-TC; 82728-TC; 83615-TC; 83735-TC; 84100-TC; 85025-TC; 85378-TC; 86140-TC; 97110-TC; 97112-TC; 97116-TC; 97530-TC; G0378; J1650; J1956; J7050

== ENCOUNTER 2022-12-19 14:26 | Inpatient (IN) | payer MEDICARE, OTHER ==
[~2022-12-19] VITALS: Ht 182.9 cm; Wt 67.1 kg
[~2022-12-19 14:26] MED LIST changes: +ACET-868 PO; -CHOL100062 PO; +DIVA125C2 PO; +LEVO250T59 PO; +MAG30ORA PO; +MAGN400O6 PO; +OLAN5TAB3 PO; -QUET25TA PO; +TAMS-12 PO
[2022-12-19 14:43] LABS: BASOPHILS # (AUTO) 0.1 K/uL (0.0-0.2); BASOPHILS % (AUTO) 0.9 % (0.0-2.0); EOSINOPHILS # (AUTO) 0.4 K/uL (0.0-0.7); EOSINOPHILS % (AUTO) 6.6 % (0.0-6.0); HEMATOCRIT 37 % (39-51); HEMOGLOBIN 12.2 g/dL (13.5-17.5); LYMPHOCYTES # (AUTO) 1.9 K/uL (0.8-4.8); LYMPHOCYTES % (AUTO) 30.5 % (20.0-44.0); MEAN CORPUSCULAR HEMOGLOBIN 31 PG (26.0-33.0); MEAN CORPUSCULAR HGB CONC 33 g/dl (31.0-36.0); MEAN CORPUSCULAR VOLUME 92 fL (80-96); MONOCYTES # (AUTO) 0.8 K/uL (0.1-1.30); MONOCYTES % (AUTO) 13.1 % (2.0-12.0); NEUTROPHILS % (AUTO) 48.9 % (43.0-81.0); PLATELET COUNT (AUTO) 191 K/uL (150-450); RED BLOOD CELL COUNT(AUTO) 4.01 MIL/uL (4.5-6.0); RED CELL DISTRIBUTION WIDTH 13.5 % (11.5-15.0); WHITE BLOOD COUNT (AUTO) 6.1 K/uL (4.3-11.0)
[2022-12-19 14:53] LABS: CALCIUM, SERUM 9.2 mg/dL (8.5-10.1); CARBON DIOXIDE 32 mmol/L (21-32); CHLORIDE 107 mmol/L (98-107); GLUCOSE 104 mg/dL (74-106); POTASSIUM 4.4 mmol/L (3.5-5.1); SODIUM SERUM 144 mmol/L (136-145); UREA NITROGEN, BLOOD 25 mg/dL (7-18)
[2022-12-19 14:57] LABS: INR 1.03 (0.91-1.10); PARTIAL THROMBOPLASTIN TIME 25.6 SEC (24.3-34.3); PROTHROMBIN TIME 10.8 SECS (9.2-11.1)
[2022-12-19] MEDS ORDERED: IV NS 0.9% 1,000 ML IV ONE (16:00)
[2022-12-19 17:21] LABS: BASOPHILS # (AUTO) 0.1 K/uL (0.0-0.2); BASOPHILS % (AUTO) 0.9 % (0.0-2.0); EOSINOPHILS # (AUTO) 0.3 K/uL (0.0-0.7); EOSINOPHILS % (AUTO) 4.8 % (0.0-6.0); HEMATOCRIT 36 % (39-51); HEMOGLOBIN 11.8 g/dL (13.5-17.5); LYMPHOCYTES # (AUTO) 1.7 K/uL (0.8-4.8); LYMPHOCYTES % (AUTO) 24.4 % (20.0-44.0); MEAN CORPUSCULAR HEMOGLOBIN 31 PG (26.0-33.0); MEAN CORPUSCULAR HGB CONC 33 g/dl (31.0-36.0); MEAN CORPUSCULAR VOLUME 92 fL (80-96); MONOCYTES # (AUTO) 0.8 K/uL (0.1-1.30); MONOCYTES % (AUTO) 11.8 % (2.0-12.0); NEUTROPHILS # (AUTO) 4.1 K/uL (1.8-8.9); NEUTROPHILS % (AUTO) 58.1 % (43.0-81.0); PLATELET COUNT (AUTO) 188 K/uL (150-450); RED BLOOD CELL COUNT(AUTO) 3.86 MIL/uL (4.5-6.0); RED CELL DISTRIBUTION WIDTH 13.5 % (11.5-15.0); WHITE BLOOD COUNT (AUTO) 7.1 K/uL (4.3-11.0)
[2022-12-19 17:38] LABS: POTASSIUM 4.7 mmol/L (3.5-5.1)
[2022-12-19 17:44] LABS: APPEARANCE,URINE CLEAR (CLEAR); BILIRUBIN,URINE NEGATIVE (NEGATIVE); BLOOD, URINE NEGATIVE Ery/uL (NEGATIVE); COLOR,URINE YELLOW (YELLOW); KETONES,URINE NEGATIVE (NEGATIVE); LEUKOCYTE ESTERASE ,URINE NEGATIVE (NEGATIVE); NITRITE, URINE NEGATIVE (NEGATIVE); PH,URINE 5.5 (5.0-8.0); PROTEIN,URINE NEGATIVE (NEGATIVE); UGLUCOSE NEGATIVE (NEGATIVE)
[2022-12-19 17:45] LABS: ALBUMIN 3.1 g/dL (3.4-5.0); BILIRUBIN,TOTAL 0.3 mg/dL (0.2-1.0); TOTAL PROTEIN, SERUM 6.6 g/dL (6.4-8.2)
[2022-12-19 17:49] LABS: ADD URINE CULTURE NO; BACTERIA,URINE None seen /HPF (None Seen); RBC,URINE 0-2 /HPF (0-2); SQUAMOUS EPITHELIAL CELL,UR 0-2 /HPF (None Seen); WBC,URINE 0-2 /HPF (0-3)
[2022-12-19 17:51] LABS: INR 1.04 (0.91-1.10); PARTIAL THROMBOPLASTIN TIME 26.7 SEC (24.3-34.3); PROTHROMBIN TIME 10.9 SECS (9.2-11.1)
[2022-12-19] MEDS: BLOOD SUGAR DIAGNOSTIC 1 EACH STRIP IN SCH ×2 (17:54→23:02)
[2022-12-19 17:57] LABS: ERYTHROCYTE SEDIMENTATION RATE 12 MM/HR (0-20)
[2022-12-19] MEDS: ENOXAPARIN SODIUM 40 MG/0.4 ML DISP.SYRIN SQ SCH (17:58)
[2022-12-19] MEDS ORDERED: BLOOD SUGAR DIAGNOSTIC 1 EACH STRIP IN SCH (18:00)
[2022-12-19 18:30] LABS: AMPHETAMINE, URINE NEGATIVE (NEGATIVE); BARBITURATE, URINE NEGATIVE (NEGATIVE); BENZODIAZEPINE, URINE NEGATIVE (NEGATIVE); CANNABINOID, URINE NEGATIVE (NEGATIVE); COCCAINE, URINE NEGATIVE (NEGATIVE); OPIATE, URINE NEGATIVE (NEGATIVE); PHENCYCLIDINE SCREEN,URINE NEGATIVE (NEGATIVE)
[2022-12-19 19:44] LABS: THYROID STIMULATING HORMONE 1.321 uIU/mL (0.358-3.74)
[2022-12-19 20:00] VITALS: BP_SYST 143; BP_SYST 153; BP_DIAS 51; BP_DIAS 93; TEMP 97.9; TEMP 98.8; O2SAT 97; O2SAT 98
[2022-12-19] MEDS: LORAZEPAM INJ 2 MG/ML VIAL IV PRN (20:03)
[2022-12-19] MEDS ORDERED: ACETAMINOPHEN 325 MG TABLET PO PRN (20:30)
[2022-12-19] MEDS: IV NS 0.9% 1,000 ML IV PRN (21:29)
[2022-12-19] MEDS: CARVEDILOL 12.5 MG TABLET PO SCH (21:45)
[2022-12-19] MEDS: SIMVASTATIN 10 MG TABLET PO SCH (22:00)
[2022-12-19] MEDS: TAMSULOSIN 0.4 MG CAP.SR.24H PO SCH (22:00)
[2022-12-20] VITALS: BP 153/93; TEMP 97.3; O2SAT 98
[2022-12-20] MEDS ORDERED: ENALAPRILAT DIHYD. (2.5MG/2ML) 1.25 MG/ML VIAL IV PRN (03:30)
[2022-12-20] MEDS ORDERED: ENALAPRILAT INJ (1.25 MG/ML) 1.25 MG/ML VIAL IV ONE (03:55)
[2022-12-20 04:00] VITALS: BP 171/100; TEMP 97.7; O2SAT 100
[2022-12-20] MEDS ORDERED: MULT-447 PO (07:46)
[2022-12-20] MEDS ORDERED: TEMA7.5C12 PO (07:46)
[2022-12-20] MEDS ORDERED: ASCO-340 PO (07:46)
[2022-12-20 08:00] VITALS: BP 131/74; TEMP 98.6; O2SAT 96
[2022-12-20] MEDS ORDERED: ASPIRIN EC 81 MG TABLET.DR PO SCH (09:00)
[2022-12-20 09:23] LABS: BASOPHILS # (AUTO) 0.1 K/uL (0.0-0.2); EOSINOPHILS # (AUTO) 0.4 K/uL (0.0-0.7); EOSINOPHILS % (AUTO) 5.2 % (0.0-6.0); HEMATOCRIT 38 % (39-51); HEMOGLOBIN 12.5 g/dL (13.5-17.5); LYMPHOCYTES # (AUTO) 1.8 K/uL (0.8-4.8); LYMPHOCYTES % (AUTO) 25.6 % (20.0-44.0); MEAN CORPUSCULAR HEMOGLOBIN 31 PG (26.0-33.0); MEAN CORPUSCULAR HGB CONC 33 g/dl (31.0-36.0); MEAN CORPUSCULAR VOLUME 93 fL (80-96); MONOCYTES % (AUTO) 14.6 % (2.0-12.0); NEUTROPHILS # (AUTO) 3.7 K/uL (1.8-8.9); NEUTROPHILS % (AUTO) 53.6 % (43.0-81.0); PLATELET COUNT (AUTO) 172 K/uL (150-450); RED BLOOD CELL COUNT(AUTO) 4.06 MIL/uL (4.5-6.0); RED CELL DISTRIBUTION WIDTH 13.2 % (11.5-15.0); WHITE BLOOD COUNT (AUTO) 6.9 K/uL (4.3-11.0)
[2022-12-20 09:27] LABS: INR 1.05 (0.91-1.10); PARTIAL THROMBOPLASTIN TIME 24.8 SEC (24.3-34.3)
[2022-12-20 09:37] LABS: CREATININE 0.8 mg/dL (0.6-1.3); POTASSIUM 3.8 mmol/L (3.5-5.1)
[2022-12-20] MEDS: BLOOD SUGAR DIAGNOSTIC 1 EACH STRIP IN SCH ×4 (10:15→21:51)
[2022-12-20] MEDS: CARVEDILOL 12.5 MG TABLET PO SCH ×2 (10:24→21:42)
[2022-12-20] MEDS: POLYETHYLENE GLYCOL 3350 17 GM POWD.PACK PO SCH (10:25)
[2022-12-20] MEDS: DIVALPROEX SODIUM 125 MG CAP.SPRINK PO SCH ×3 (10:25→18:25)
[2022-12-20] MEDS: OLANZAPINE 5 MG TABLET PO SCH ×3 (10:25→18:26)
[2022-12-20] MEDS: ASPIRIN EC 325 MG TABLET.DR PO SCH (10:25)
[2022-12-20] MEDS: IV NS 0.9% 1,000 ML IV PRN (10:50)
[2022-12-20 12:00] VITALS: BP 153/98; TEMP 97.6; O2SAT 98
[2022-12-20 16:00] VITALS: BP 151/102; TEMP 98; O2SAT 99
[2022-12-20] MEDS: ENOXAPARIN SODIUM 40 MG/0.4 ML DISP.SYRIN SQ SCH (18:28)
[2022-12-20 20:00] VITALS: BP 141/91; TEMP 97.9; O2SAT 92
[2022-12-20] MEDS: SIMVASTATIN 10 MG TABLET PO SCH (21:40)
[2022-12-20] MEDS: TAMSULOSIN 0.4 MG CAP.SR.24H PO SCH (21:42)
[2022-12-21] VITALS: BP 151/103; TEMP 97.7; O2SAT 97
[2022-12-21] MEDS: IV NS 0.9% 1,000 ML IV PRN ×2 (00:34→13:34)
[2022-12-21 06:29] LABS: BASOPHILS # (AUTO) 0.1 K/uL (0.0-0.2); BASOPHILS % (AUTO) 1.2 % (0.0-2.0); EOSINOPHILS # (AUTO) 0.5 K/uL (0.0-0.7); EOSINOPHILS % (AUTO) 8.5 % (0.0-6.0); HEMATOCRIT 38 % (39-51); HEMOGLOBIN 12.7 g/dL (13.5-17.5); LYMPHOCYTES # (AUTO) 1.7 K/uL (0.8-4.8); LYMPHOCYTES % (AUTO) 30.5 % (20.0-44.0); MEAN CORPUSCULAR HEMOGLOBIN 31 PG (26.0-33.0); MEAN CORPUSCULAR HGB CONC 34 g/dl (31.0-36.0); MEAN CORPUSCULAR VOLUME 91 fL (80-96); MONOCYTES # (AUTO) 0.6 K/uL (0.1-1.30); MONOCYTES % (AUTO) 11.1 % (2.0-12.0); NEUTROPHILS # (AUTO) 2.6 K/uL (1.8-8.9); NEUTROPHILS % (AUTO) 48.7 % (43.0-81.0); PLATELET COUNT (AUTO) 192 K/uL (150-450); RED BLOOD CELL COUNT(AUTO) 4.11 MIL/uL (4.5-6.0); RED CELL DISTRIBUTION WIDTH 13.1 % (11.5-15.0); WHITE BLOOD COUNT (AUTO) 5.4 K/uL (4.3-11.0)
[2022-12-21] MEDS: BLOOD SUGAR DIAGNOSTIC 1 EACH STRIP IN SCH ×4 (06:32→22:07)
[2022-12-21 06:57] LABS: CALCIUM, SERUM 9.3 mg/dL (8.5-10.1); CREATININE 0.8 mg/dL (0.6-1.3)
[2022-12-21] MEDS: ASPIRIN EC 325 MG TABLET.DR PO SCH (10:09)
[2022-12-21] MEDS: DIVALPROEX SODIUM 125 MG CAP.SPRINK PO SCH ×3 (10:09→16:28)
[2022-12-21] MEDS: CARVEDILOL 12.5 MG TABLET PO SCH ×2 (10:10→20:09)
[2022-12-21] MEDS: OLANZAPINE 5 MG TABLET PO SCH ×3 (10:11→16:28)
[2022-12-21] MEDS: POLYETHYLENE GLYCOL 3350 17 GM POWD.PACK PO SCH (10:11)
[2022-12-21 10:59] LABS: CHOLESTEROL 141 mg/dL (<200); HDL CHOLESTEROL 56 mg/dL (40-60); LDL 77 mg/dL (0-99); TRIGLYCERIDES 34 mg/dL (30-150)
[2022-12-21] MEDS: LORAZEPAM INJ 2 MG/ML VIAL IV PRN (14:27)
[2022-12-21] MEDS: ENOXAPARIN SODIUM 40 MG/0.4 ML DISP.SYRIN SQ SCH (16:29)
[2022-12-21 20:00] VITALS: BP 177/93; TEMP 98; O2SAT 97
[2022-12-21] MEDS: SIMVASTATIN 10 MG TABLET PO SCH (21:11)
[2022-12-21] MEDS: TAMSULOSIN 0.4 MG CAP.SR.24H PO SCH (21:11)
[2022-12-22] VITALS: BP 180/95; TEMP 98.1; O2SAT 98
[2022-12-22] MEDS ORDERED: ENALAPRILAT INJ (1.25 MG/ML) 1.25 MG/ML VIAL IV ONE ×2 (01:12→01:23)
[2022-12-22] MEDS ORDERED: AMLODIPINE BESYLATE 5 MG TABLET PO SCH (01:30)
[2022-12-22 04:00] VITALS: BP 166/100; TEMP 98.1; O2SAT 99
[2022-12-22] MEDS: IV NS 0.9% 1,000 ML IV PRN (05:42)
[2022-12-22] MEDS: BLOOD SUGAR DIAGNOSTIC 1 EACH STRIP IN SCH ×2 (06:03→12:08)
[2022-12-22 06:19] LABS: BASOPHILS # (AUTO) 0.1 K/uL (0.0-0.2); EOSINOPHILS # (AUTO) 0.4 K/uL (0.0-0.7); EOSINOPHILS % (AUTO) 5.7 % (0.0-6.0); HEMATOCRIT 41 % (39-51); HEMOGLOBIN 13.6 g/dL (13.5-17.5); LYMPHOCYTES # (AUTO) 1.9 K/uL (0.8-4.8); LYMPHOCYTES % (AUTO) 28.1 % (20.0-44.0); MEAN CORPUSCULAR HEMOGLOBIN 30 PG (26.0-33.0); MEAN CORPUSCULAR HGB CONC 33 g/dl (31.0-36.0); MEAN CORPUSCULAR VOLUME 92 fL (80-96); MONOCYTES % (AUTO) 14.8 % (2.0-12.0); NEUTROPHILS # (AUTO) 3.4 K/uL (1.8-8.9); NEUTROPHILS % (AUTO) 50.4 % (43.0-81.0); PLATELET COUNT (AUTO) 217 K/uL (150-450); RED BLOOD CELL COUNT(AUTO) 4.47 MIL/uL (4.5-6.0); RED CELL DISTRIBUTION WIDTH 13.3 % (11.5-15.0); WHITE BLOOD COUNT (AUTO) 6.8 K/uL (4.3-11.0)
[2022-12-22 06:31] LABS: CALCIUM, SERUM 9.2 mg/dL (8.5-10.1); CARBON DIOXIDE 25 mmol/L (21-32); CHLORIDE 104 mmol/L (98-107); CREATININE 0.9 mg/dL (0.6-1.3); GLUCOSE 84 mg/dL (74-106); MAGNESIUM 2.3 mg/dL (1.8-2.4); PHOSPHORUS 3.2 mg/dL (2.5-4.9); POTASSIUM 3.9 mmol/L (3.5-5.1); SODIUM SERUM 139 mmol/L (136-145); UREA NITROGEN, BLOOD 10 mg/dL (7-18)
[2022-12-22] MEDS ORDERED: LISINOPRIL (10MG) 10 MG TABLET PO SCH (09:00)
[2022-12-22] MEDS ORDERED: CLOPIDOGREL BISULFATE 75 MG TABLET PO SCH (09:00)
[2022-12-22] MEDS ORDERED: NIFEdipine XL (30MG) 30 MG TAB PO SCH (09:00)
[2022-12-22] MEDS ORDERED: ASPIRIN 81 MG TAB.CHEW PO SCH (09:00)
[2022-12-22] MEDS: POLYETHYLENE GLYCOL 3350 17 GM POWD.PACK PO SCH (09:35)
[2022-12-22] MEDS: CARVEDILOL 12.5 MG TABLET PO SCH (09:35)
[2022-12-22 09:36] VITALS: BP 166/91
[2022-12-22] MEDS: OLANZAPINE 5 MG TABLET PO SCH ×2 (09:36→12:30)
[2022-12-22] MEDS: DIVALPROEX SODIUM 125 MG CAP.SPRINK PO SCH ×2 (09:36→12:30)
[2022-12-22] MEDS ORDERED: NIFE-35 PO (10:13)
[2022-12-22] MEDS ORDERED: CLOP75TA15 PO (10:13)
[2022-12-22] MEDS ORDERED: LISI10TA29 PO (10:13)
[2022-12-22] MEDS ORDERED: CLONIDINE HCL 0.1 MG TABLET PO PRN (10:30)
[2022-12-22] MEDS ORDERED: ENALAPRILAT DIHYD. (2.5MG/2ML) 1.25 MG/ML VIAL IV PRN (14:30)
== END 2022-12-22 16:42 | DRG 66 ==
LOC: ER 14:35 → TELE 16:17
PROVIDERS: ADMIT Internal Medicine; ATTEND Internal Medicine
DX: I63.9 Cerebral infarction, unspecified (principal); F25.9 Schizoaffective disorder, unspecified; I11.0 Hypertensive heart disease with heart failure; I50.9 Heart failure, unspecified; F03.90 Unspecified dementia, unspecified severity, without behavioral disturbance, psychotic disturbance, mood disturbance, and anxiety; R29.711 NIHSS score 11; R29.810 Facial weakness; Z95.0 Presence of cardiac pacemaker; F39 Unspecified mood [affective] disorder; Z79.82 Long term (current) use of aspirin; Z79.899 Other long term (current) drug therapy; E78.5 Hyperlipidemia, unspecified; I25.10 Atherosclerotic heart disease of native coronary artery without angina pectoris; D64.9 Anemia, unspecified; F29 Unspecified psychosis not due to a substance or known physiological condition; N40.0 Benign prostatic hyperplasia without lower urinary tract symptoms; Z79.02 Long term (current) use of antithrombotics/antiplatelets
CPT/HCPCS: 36415; 70450-TC; 70496-TC; 70498-TC; 80048-TC; 80053-TC; 80061-TC; 80164-TC; 81001; 82962-TC; 83605-TC; 83735-TC; 84100-TC; 84443-TC; 84484-TC; 85025-TC; 85652-TC; 85730-TC; 87040-TC; 92526; 92611-TC; 93307-TC; 97110-TC; 97112-TC; 97530-TC; A4223; G0378; J1650; J2060; J3490; J7030